=== PATIENT | female | born 1970 | race Caucasian/White ===

== ENCOUNTER 2016-06-20 14:38 | Emergency (ER) | payer OTHER ==
[~2016-06-20] VITALS: Ht 162.6 cm; Wt 70.0 kg
[~2016-06-20 14:38] MED LIST: POTA1CAP2 PO; PRLSR20 PO; RANI150T3 PO
[2016-06-20 14:44] VITALS: TEMP 37.2; Ht 162.6 cm; Wt 70.0 kg
[2016-06-20 15:00] VITALS: O2SAT 94
[2016-06-20] MEDS ORDERED: VITACAP26 PO (15:18)
[2016-06-20] MEDS ORDERED: CRAN1CAP15 PO (15:18)
[2016-06-20 15:27] LABS: BASO % 0.6 %; BASO ABS # 0.07 K/uL (0-0.2); COMPLETE YES; EOS % 1.7 %; HEMATOCRIT 42.2 % (37-47); IG% 0.3 %; LYMPH % 24.5 %; MEAN CELL VOLUME 91.1 fL (80-100); MEAN CORPUSCULAR HEMOGLOBIN 31.5 pg (25-34); MEAN CORPUSCULAR HGB CONC 34.6 g/dl (32-36); MEAN PLATELET VOLUME 10.5 fL (7.4-10.4); MONO % 7.4 %; NEUT % 65.5 %; PLATELET COUNT 309 K/uL (130-400); RED BLOOD COUNT 4.63 M/uL (4.2-5.4); WHITE BLOOD COUNT 12.22 K/uL (4.8-10.8)
--- NOTE | 2016-06-20 15:33 | EMERGENCY ROOM VISIT NOTE ---
History Report prepared by Zaira: Alex Harris Under the Supervision of: Dr. Abdon Patel D.O. First contact with patient: 14:48 Chief Complaint: ILLNESS Stated Complaint: BACK/ABD PAIN History of Present Illness The patient is a 45 year old female who presents to the Emergency Room with complaints of severe and persistent low back pain starting yesterday. She also reports bilateral lower extremity pain. The patient fell down face first at home yesterday due to weakness in bilateral lower extremities. She slid down [address]. She denies hitting her head but reports losing consciousness. The patient currently denies any headache, neck pain, abdominal pain, blood in urine, or any other complaints. She denies any recent surgeries. The patient states that she currently feels drunk but states that only had a small amount of alcohol this morning. She drinks alcohol occasionally. Source of History: patient Onset: yesterday Position: back (lower) Symptom Intensity: severe Timing: other (persistent) Associated Symptoms: + LOC, No abdominal pain, No headache, No neck pain Review of Systems See HPI for pertinent positives & negatives. A total of 10 systems reviewed and were otherwise negative. Past Medical & Surgical Medical Problems: (1) Anxiety (2) Bipolar disorder (3) Chest pain (4) Depression (5) Hiatal hernia (6) Hysterectomy (7) Migraine Surgical Problems: (1) H/O colonoscopy (2) H/O esophagogastroduodenoscopy (3) H/O exploratory laparotomy (4) H/O tubal ligation (5) H/O: hysterectomy Family History FHx: diabetes FHx: hypertension Social History Smoking Status: Current Every Day Smoker Alcohol Use: occasionally Drug Use: none Marital Status: Housing Status: lives with family Occupation Status: unemployed Current/Historical Medications Scheduled Cranberry-Vitamin C-Vitamin E (Cranberry), 2 CAP PO HS Escitalopram Oxalate (Escitalopram Oxalate), 20 MG PO HS Omeprazole (Prilosec), 20 MG PO BID Ranitidine HCl (Ranitidine HCl), 150 MG PO BID Vitamins C & E (Vitamin C), 1 CAP PO HS Scheduled PRN Dicyclomine Hcl (Dicyclomine Hcl), 10 MG PO QID PRN for Abdominal Pain Allergies Coded Allergies: Ciprofloxacin (Verified Adverse Reaction, Mild, GI SYMPTOMS, 04/04/16) Physical Exam Vital Signs Date Time Temp Pulse Resp B/P Pulse Ox O2 Delivery O2 Flow Rate FiO2 06/20/16 16:24 87 18 140/85 95 Room Air 06/20/16 15:06 86 06/20/16 15:00 94 Room Air 06/20/16 14:51 94 Room Air 06/20/16 14:44 37.2 84 16 127/85 94 Room Air Physical Exam GENERAL: Patient is awake, alert, mildly anxious appearing but also appears intoxicated. EYES: The conjunctivae are clear. The pupils are round and reactive. EARS, NOSE, MOUTH AND THROAT: The nose is without any evidence of any deformity. Mucous membranes are moist tongue is midline NECK: The neck is nontender and supple. RESPIRATORY: Normal respiratory effort is noted there is no evidence of wheezing rhonchi or rales CARDIOVASCULAR: Regular rate and rhythm noted there no murmurs rubs or gallops normal S1 normal S2 GASTROINTESTINAL: The abdomen is soft. Bowel sounds are present in all quadrants. Abdomen is nontender PELVIS: The Pelvis is stable. No tenderness to palpation is noted. BACK: Diffuse lumbar tenderness to palpation especially to lower lumbar spine, no step off. Patient is not restricted in movement. MUSCULOSKELETAL/EXTREMITIES: There is no evidence of gross deformity full range of motion is noted in the hips and shoulders SKIN: There is no obvious evidence of any rash. There are no petechiae, pallor or cyanosis noted. NEUROLOGIC: Patient is awake alert and oriented x3. Slurring her words. Medical Decision & Procedures ER Provider Diagnostic Interpretation: X ray results and stated below per my interpretation and radiology interpretation. CT results per my review and radiologist interpretation: CT SCAN OF THE CERVICAL SPINE CLINICAL HISTORY: Fall. COMPARISON STUDY: CT scan of the cervical spine dated 05/16/2014. Chest CT dated 09/13/2011. TECHNIQUE: CT scan of the cervical spine is performed from the skull base to the upper thoracic spine. Images are reviewed in the axial, sagittal, and coronal planes. IV contrast was not administered for this examination. CT DOSE: 432.92 mGycm FINDINGS: Skeletal structures: The skeletal structures are well mineralized. There is no evidence of fracture or subluxation involving the cervical spine. Vertebral body height and alignment are maintained. The odontoid process and lateral masses are intact. The atlantoaxial articulation is preserved. The spinous processes appear intact. Intervertebral discs: The disc spaces are well maintained. Central canal: Widely patent. Soft tissues: The prevertebral and paraspinous soft tissues are within normal limits. Calvarium: The visualized calvarium at the skull base appears intact. Brain parenchyma: Partially visualized brain parenchyma the skull base is within normal limits. Mastoids: The mastoid air cells are well pneumatized. Lung apices: A 5 mm left upper lobe pulmonary nodule is partially visualized. Upper lobe lung parenchyma is otherwise clear as visualized. IMPRESSION: 1. There is no evidence of fracture or subluxation involving the cervical spine. 2. There is a 5 mm left apical pulmonary nodule which is only partially imaged. This appears to have increased in size from the 09/13/[address] scan. A nonemergent follow-up chest CT is recommended for reassessment. Electronically signed by: Braeden Gill M.D. 06/20/2016 3:45 PM Dictated Date/Time: 06/20/2016 3:38 PM TWO VIEW CHEST CLINICAL HISTORY: Cough. Fall. FINDINGS: PA and lateral chest radiographs are compared to study dated 04/04/2016. Correlation is made with chest CT dated 09/13/2011. The PA view is degraded by apical lordotic positioning. The cardiomediastinal silhouette is unremarkable. Emphysema and chronic interstitial thickening are similar to previous. No airspace consolidation or pleural effusion is identified. There is no pneumothorax. The bony thorax appears intact. IMPRESSION: Emphysema with no acute cardiopulmonary abnormality. Electronically signed by: Braeden Gill M.D. 06/20/2016 4:02 PM Dictated Date/Time: 06/20/2016 4:[address] OF THE HEAD WITHOUT CONTRAST CLINICAL HISTORY: Fall. COMPARISON STUDY: Head CT October 21, 2015. CT DOSE: 638.56 mGycm TECHNIQUE: Helical axial images of the head were obtained without IV contrast. Automated exposure control was utilized for the study. FINDINGS: No acute intracranial hemorrhage, midline shift or mass effect is present. Ventricular system is normal. Basilar cisterns are patent. There are no extra-axial collections. Miranda-white differentiation is maintained. There is no calvarial fracture. Visualized portions of the sinuses and mastoid air cells are clear. IMPRESSION: 1. No acute intracranial findings. 2. No calvarial fracture. Electronically signed by: Guille Escobedo M.D. 06/20/2016 3:41 PM Dictated Date/Time: 06/20/2016 3:[address] OF THE LUMBAR SPINE WITHOUT CONTRAST CT DOSE: 584.48 mGycm CLINICAL HISTORY: Back pain following fall TECHNIQUE: Axial images of the lumbar spine were obtained without IV contrast. Sagittal and coronal reconstructions were viewed. COMPARISON STUDY: CT of the abdomen and pelvis October 21, 2015. FINDINGS: Alignment of the lumbar spine is anatomic. There is no acute fracture. Mild multilevel degenerative disc disease and facet arthrosis is present. Bilateral L5 pars defects with slight anterolisthesis of L5 on S1 are unchanged since exam of October 21, 2015. Paravertebral soft tissues are unremarkable. Central canal is suboptimally assessed by CT but no acute abnormality is identified. IMPRESSION: 1. No acute lumbar spine fracture or subluxation. 2. Mild multilevel degenerative disc disease and facet arthrosis. 3. Bilateral L5 pars defects with slight anterolisthesis of L5 on S1, unchanged since CT of October 21, 2015. Electronically signed by: Guille Escobedo M.D. 06/20/2016 3:46 PM Dictated Date/Time: 06/20/2016 3:41 PM PELVIS 1 OR 2 VIEW ROUTINE CLINICAL HISTORY: Fall. COMPARISON STUDY: CT of the abdomen and pelvis October 21, 2015. FINDINGS: The sacroiliac joints and symphysis pubis are intact. No acute fracture is identified within the pelvis or the hips. Hip joint spaces are preserved. Osteophytes along each acetabulum are noted. These are chronic. IMPRESSION: No acute fracture within the pelvis or hips. Electronically signed by: Guille Escobedo M.D. 06/20/2016 4:02 PM Dictated Date/Time: 06/20/2016 4:01 PM Laboratory Results 06/20/16 14:50 Red Blood Count 4.63, Mean Corpuscular Volume 91.1, Mean Corpuscular Hemoglobin 31.5, Mean Corpuscular Hemoglobin Concent 34.6, Mean Platelet Volume 10.5, Neutrophils (%) (Auto) 65.5, Lymphocytes (%) (Auto) 24.5, Monocytes (%) (Auto) 7.4, Eosinophils (%) (Auto) 1.7, Basophils (%) (Auto) 0.6, Neutrophils # (Auto) 7.99, Lymphocytes # (Auto) 3.00, Monocytes # (Auto) 0.91, Eosinophils # (Auto) 0.21, Basophils # (Auto) 0.07 06/20/16 14:50 Test 06/20/16 14:50 06/20/16 15:12 06/20/16 15:15 06/20/16 16:22 White Blood Count 12.22 K/uL (4.8-10.8) Red Blood Count 4.63 M/uL (4.2-5.4) Hemoglobin 14.6 g/dL (12.0-16.0) Hematocrit 42.2 % (37-47) Mean Corpuscular Volume 91.1 fL (80-100) Mean Corpuscular Hemoglobin 31.5 pg (25-34) Mean Corpuscular Hemoglobin Concent 34.6 g/dl (32-36) Platelet Count 309 K/uL (130-400) Mean Platelet Volume 10.5 fL (7.4-10.4) Neutrophils (%) (Auto) 65.5 % Lymphocytes (%) (Auto) 24.5 % Monocytes (%) (Auto) 7.4 % Eosinophils (%) (Auto) 1.7 % Basophils (%) (Auto) 0.6 % Neutrophils # (Auto) 7.99 K/uL (1.4-6.5) Lymphocytes # (Auto) 3.00 K/uL (1.2-3.4) Monocytes # (Auto) 0.91 K/uL (0.11-0.59) Eosinophils # (Auto) 0.21 K/uL (0-0.5) Basophils # (Auto) 0.07 K/uL (0-0.2) RDW Standard Deviation 46.8 fL (36.4-46.3) RDW Coefficient of Variation 14.0 % (11.5-14.5) Immature Granulocyte % (Auto) 0.3 % Immature Granulocyte # (Auto) 0.04 K/uL (0.00-0.02) Prothrombin Time 11.6 SECONDS (9.0-12.0) Prothromb Time International Ratio 1.1 (0.9-1.1) Activated Partial Thromboplast Time 26.6 SECONDS (21.0-31.0) Partial Thromboplastin Ratio 1.0 Anion Gap 11.0 mmol/L (3-11) Est Creatinine Clear Calc Drug Dose 74.9 ml/min Estimated GFR () 87.8 Estimated GFR (Non- 75.7 BUN/Creatinine Ratio 11.8 (10-20) Calcium Level 8.3 mg/dl (8.5-10.1) Total Bilirubin 0.2 mg/dl (0.2-1) Direct Bilirubin < 0.1 mg/dl (0-0.2) Aspartate Amino Transf (AST/SGOT) 29 U/L (15-37) Alanine Aminotransferase (ALT/SGPT) 30 U/L (12-78) Alkaline Phosphatase 95 U/L (45-117) Total Creatine Kinase 80 U/L (26-192) Troponin I < 0.015 ng/ml (0-0.045) Total Protein 8.2 gm/dl (6.4-8.2) Albumin 4.2 gm/dl (3.4-5.0) Lipase 140 U/L (73-393) Salicylates Level 5.0 mg/dl (2.8-20) Acetaminophen Level < 2 ug/ml (10-30) Bedside Glucose 97 mg/dl (70-90) Ethyl Alcohol mg/dL 232.0 mg/dl (0-3) Urine Color YELLOW Urine Appearance CLOUDY (CLEAR) Urine pH 5.5 (4.5-7.5) Urine Specific [place] 1.019 (1.000-1.030) Urine Protein TRACE (NEG) Urine Glucose (UA) NEG (NEG) Urine Ketones NEG (NEG) Urine Occult Blood 2+ (NEG) Urine Nitrite NEG (NEG) Urine Bilirubin NEG (NEG) Urine Urobilinogen NEG (NEG) Urine Leukocyte Esterase MODERATE (NEG) Urine WBC (Auto) >30 /hpf (0-5) Urine RBC (Auto) 0-4 /hpf (0-4) Urine Hyaline Casts (Auto) 0 /lpf (0-5) Urine Epithelial Cells (Auto) >30 /lpf (0-5) Urine Bacteria (Auto) 2+ (NEG) Urine Pathogenic Casts See comments /lpf (0) Urine Yeast (Auto) (NONE PRSENT) Urine Opiates Screen NEG (NEG) Urine Methadone, Qualitative NEG (NEG) Urine Barbiturates NEG (NEG) Urine Phencyclidine (PCP) Level NEG (NEG) Ur Amphetamine/Methamphetamine NEG (NEG) MDMA (Ecstasy) Screen NEG (NEG) Urine Benzodiazepines Screen NEG (NEG) Urine Cocaine Metabolite NEG (NEG) Urine Marijuana (THC) NEG (NEG) Laboratory results per my review. ECG Indication: back/shoulder pain, other (fall) Rate (beats per minute): 81 Rhythm: normal sinus Findings: no ectopy, other (No acute ST segment abnormalities) Comparison ECG Date: November 19, 2015 Change: no significant change ED Course 1448: The patient was evaluated in room A03. A complete history and physical examination were performed. 1710: The patient left the hospital before discharge instructions were discussed. Medical Decision Prior records/ancillary studies reviewed. Triage Nursing notes reviewed. Differential diagnosis: Etiologies such as fracture, dislocation, intra-abdominal, pneumothorax, intrathoracic , intracranial, neurologic, as well as other traumatic pathologies were entertained. Nursing notes reviewed. The patient is a 45-year-old female who presented to the emergency department for an evaluation back pain. The patient states that she fell down some stairs at her home yesterday. She has pain which is mostly in the lower lumbar spine. She states that she has pain and numbness in her legs. Her exam was normal. Her reflexes were normal. She was able to ambulate without difficulty. The patient had an elevated alcohol level in the emergency department. The patient was treated with IV fluids in the emergency department. I discussed the patient's laboratory and radiographic studies with her. At this time there is no bony abnormality noted on CT scan. She was encouraged to rest and avoid any strenuous activity. She was encouraged to avoid any strong pain medication for next 24 hours and avoid any further alcoholic beverages for next 24 hours. She was also encouraged to avoid operating any heavy machinery including driving a vehicle for next 24 hours. She was also encouraged to follow-up with her primary care physician as soon as possible but return to the emergency department immediately if symptoms change worsen or if the need arises. Impression Primary Impression: Fall Additional Impressions: Lumbar contusion Alcohol intoxication Scribe Attestation The scribe's documentation has been prepared under my direction and personally reviewed by me in its entirety. I confirm that the note above accurately reflects all work, treatment, procedures, and medical decision making performed by me. Departure Information Dispostion Home / Self-Care Referrals Tara Byrne PA-C (PCP) Forms HOME CARE DOCUMENTATION FORM, IMPORTANT VISIT INFORMATION, WORK / SCHOOL INSTRUCTIONS Patient Instructions Alcohol Intoxication - [facility], ED Sprain Strain Lumbar, My [facility] Additional Instructions Call your family to schedule a follow-up appointment. Continue using Motrin and Tylenol as directed for pain. Avoid any strenuous activity. Do not operate any heavy machinery including driving a vehicle for the next 24 hours because her alcohol level was very elevated. Problem Qualifiers
[2016-06-20 15:40] LABS: INR 1.1 (0.9-1.1); PROTHROMBIN TIME (PATIENT) 11.6 SECONDS (9.0-12.0)
--- NOTE | 2016-06-20 15:42 | DIAGNOSTIC IMAGING REPORT ---
CT OF THE HEAD WITHOUT CONTRAST CLINICAL HISTORY: Fall. COMPARISON STUDY: Head CT October 21, 2015. CT DOSE: 638.56 mGycm TECHNIQUE: Helical axial images of the head were obtained without IV contrast. Automated exposure control was utilized for the study. FINDINGS: No acute intracranial hemorrhage, midline shift or mass effect is present. Ventricular system is normal. Basilar cisterns are patent. There are no extra-axial collections. Miranda-white differentiation is maintained. There is no calvarial fracture. Visualized portions of the sinuses and mastoid air cells are clear. IMPRESSION: 1. No acute intracranial findings. 2. No calvarial fracture. Electronically signed by: Guille Escobedo M.D. 06/20/2016 3:41 PM Dictated Date/Time: 06/20/2016 3:34 PM
[2016-06-20 15:47] LABS: ALT/SGPT 30 U/L (12-78); BLOOD UREA NITROGEN 11 mg/dl (7-18); BUN/CREATININE RATIO 11.8 (10-20); CALCIUM 8.3 mg/dl (8.5-10.1); CARBON DIOXIDE 23 mmol/L (21-32); CHLORIDE 105 mmol/L (98-107); CREATININE 0.92 mg/dl (0.60-1.20); GLUCOSE 93 mg/dl (70-99); POTASSIUM 3.9 mmol/L (3.5-5.1); SODIUM 139 mmol/L (136-145)
--- NOTE | 2016-06-20 15:47 | DIAGNOSTIC IMAGING REPORT ---
CT SCAN OF THE CERVICAL SPINE CLINICAL HISTORY: Fall. COMPARISON STUDY: CT scan of the cervical spine dated 05/16/2014. Chest CT dated 09/13/2011. TECHNIQUE: CT scan of the cervical spine is performed from the skull base to the upper thoracic spine. Images are reviewed in the axial, sagittal, and coronal planes. IV contrast was not administered for this examination. CT DOSE: 432.92 mGycm FINDINGS: Skeletal structures: The skeletal structures are well mineralized. There is no evidence of fracture or subluxation involving the cervical spine. Vertebral body height and alignment are maintained. The odontoid process and lateral masses are intact. The atlantoaxial articulation is preserved. The spinous processes appear intact. Intervertebral discs: The disc spaces are well maintained. Central canal: Widely patent. Soft tissues: The prevertebral and paraspinous soft tissues are within normal limits. Calvarium: The visualized calvarium at the skull base appears intact. Brain parenchyma: Partially visualized brain parenchyma the skull base is within normal limits. Mastoids: The mastoid air cells are well pneumatized. Lung apices: A 5 mm left upper lobe pulmonary nodule is partially visualized. Upper lobe lung parenchyma is otherwise clear as visualized. IMPRESSION: 1. There is no evidence of fracture or subluxation involving the cervical spine. 2. There is a 5 mm left apical pulmonary nodule which is only partially imaged. This appears to have increased in size from the 09/13/[address] scan. A nonemergent follow-up chest CT is recommended for reassessment. Electronically signed by: Braeden Gill M.D. 06/20/2016 3:45 PM Dictated Date/Time: 06/20/2016 3:38 PM
--- NOTE | 2016-06-20 15:48 | DIAGNOSTIC IMAGING REPORT ---
CT OF THE LUMBAR SPINE WITHOUT CONTRAST CT DOSE: 584.48 mGycm CLINICAL HISTORY: Back pain following fall TECHNIQUE: Axial images of the lumbar spine were obtained without IV contrast. Sagittal and coronal reconstructions were viewed. COMPARISON STUDY: CT of the abdomen and pelvis October 21, 2015. FINDINGS: Alignment of the lumbar spine is anatomic. There is no acute fracture. Mild multilevel degenerative disc disease and facet arthrosis is present. Bilateral L5 pars defects with slight anterolisthesis of L5 on S1 are unchanged since exam of October 21, 2015. Paravertebral soft tissues are unremarkable. Central canal is suboptimally assessed by CT but no acute abnormality is identified. IMPRESSION: 1. No acute lumbar spine fracture or subluxation. 2. Mild multilevel degenerative disc disease and facet arthrosis. 3. Bilateral L5 pars defects with slight anterolisthesis of L5 on S1, unchanged since CT of October 21, 2015. Electronically signed by: Guille Escobedo M.D. 06/20/2016 3:46 PM Dictated Date/Time: 06/20/2016 3:41 PM
[2016-06-20 15:51] LABS: ALKALINE PHOSPHATASE 95 U/L (45-117); AST/SGOT 29 U/L (15-37)
[2016-06-20 15:53] LABS: ACETAMINOPHEN < 2 ug/ml (10-30)
--- NOTE | 2016-06-20 16:03 | DIAGNOSTIC IMAGING REPORT ---
PELVIS 1 OR 2 VIEW ROUTINE CLINICAL HISTORY: Fall. COMPARISON STUDY: CT of the abdomen and pelvis October 21, 2015. FINDINGS: The sacroiliac joints and symphysis pubis are intact. No acute fracture is identified within the pelvis or the hips. Hip joint spaces are preserved. Osteophytes along each acetabulum are noted. These are chronic. IMPRESSION: No acute fracture within the pelvis or hips. Electronically signed by: Guille Escobedo M.D. 06/20/2016 4:02 PM Dictated Date/Time: 06/20/2016 4:01 PM
--- NOTE | 2016-06-20 16:03 | DIAGNOSTIC IMAGING REPORT ---
TWO VIEW CHEST CLINICAL HISTORY: Cough. Fall. FINDINGS: PA and lateral chest radiographs are compared to study dated 04/04/2016. Correlation is made with chest CT dated 09/13/2011. The PA view is degraded by apical lordotic positioning. The cardiomediastinal silhouette is unremarkable. Emphysema and chronic interstitial thickening are similar to previous. No airspace consolidation or pleural effusion is identified. There is no pneumothorax. The bony thorax appears intact. IMPRESSION: Emphysema with no acute cardiopulmonary abnormality. Electronically signed by: Braeden Gill M.D. 06/20/2016 4:02 PM Dictated Date/Time: 06/20/2016 4:00 PM
[2016-06-20 16:24] VITALS: BP 140/85; PULSE 87; O2SAT 95
[2016-06-20 16:47] LABS: URINE APPEARANCE CLOUDY (CLEAR); URINE BILIRUBIN NEG (NEG); URINE COLOR YELLOW; URINE EPITHELIAL CELL AUTO >30 /lpf (0-5); URINE NITRITE NEG (NEG); URINE PH 5.5 (4.5-7.5); URINE SPECIFIC GRAVITY 1.019 (1.000-1.030); UROBILINOGEN NEG (NEG)
[2016-06-20] MEDS ORDERED: DICY10CA12 PO (16:47)
[2016-06-20 17:01] LABS: BENZODIAZEPINE, URINE NEG (NEG); COCAINE,URINE NEG (NEG); MANUAL MICROSCOPIC REQUIRED? NO; PHENCYCLIDINE, URINE NEG (NEG); REVIEW REQ? YES
== END 2016-06-20 17:00 | disposition left against medical advice (07) ==
LOC: EDBD 14:38 → C.EDA 14:39
DX: S30.0XXA Contusion of lower back and pelvis, initial encounter (principal); F10.129 Alcohol abuse with intoxication, unspecified; W19.XXXA Unspecified fall, initial encounter; F41.9 Anxiety disorder, unspecified; F31.9 Bipolar disorder, unspecified; Z90.710 Acquired absence of both cervix and uterus; Z98.51 Tubal ligation status; F17.200 Nicotine dependence, unspecified, uncomplicated

== ENCOUNTER 2016-12-12 12:57 | Emergency (ER) | payer OTHER ==
[~2016-12-12] VITALS: Ht 162.6 cm; Wt 69.1 kg
[~2016-12-12 12:57] MED LIST changes: +CRAN1CAP15 PO; +DICY10CA12 PO; -POTA1CAP2 PO; -PRLSR20 PO; -RANI150T3 PO; +VITACAP26 PO
[2016-12-12 13:01] VITALS: TEMP 36.7; Ht 162.6 cm; Wt 69.1 kg
[2016-12-12] MEDS ORDERED: SODIUM CHLORIDE 0.9% 1000ML 1,000 ML IV STA (13:25)
[2016-12-12] MEDS ORDERED: SODIUM CHLORIDE 0.9% 1000ML 2,000 ML IV STA (13:25)
[2016-12-12 13:52] LABS: BASO % 0.4 %; BASO ABS # 0.05 K/uL (0-0.2); COMPLETE YES; EOS % 0.5 %; HEMATOCRIT 41.4 % (37-47); IG% 0.2 %; LYMPH % 16.8 %; LYMPH ABS # 2.09 K/uL (1.2-3.4); MEAN CORPUSCULAR HEMOGLOBIN 32.8 pg (25-34); MEAN CORPUSCULAR HGB CONC 36.5 g/dl (32-36); MEAN PLATELET VOLUME 10.4 fL (7.4-10.4); NEUT % 73.1 %; PLATELET COUNT 281 K/uL (130-400); WHITE BLOOD COUNT 12.46 K/uL (4.8-10.8)
--- NOTE | 2016-12-12 14:03 | DIAGNOSTIC IMAGING REPORT ---
SINGLE VIEW CHEST CLINICAL HISTORY: Dizziness. FINDINGS: An AP, portable, upright chest radiograph is compared to study dated 06/20/2016. The examination is degraded by portable technique and patient rotation. The cardiomediastinal silhouette is unremarkable. The lungs and pleural spaces are clear. No pneumothorax is seen. The bony thorax is grossly intact. IMPRESSION: No active disease in the chest. Electronically signed by: Braeden Gill M.D. 12/12/2016 2:01 PM Dictated Date/Time: 12/12/2016 2:01 PM
[2016-12-12 14:13] LABS: URINE APPEARANCE CLOUDY (CLEAR); URINE BILIRUBIN NEG (NEG); URINE COLOR DK YELLOW; URINE EPITHELIAL CELL AUTO >30 /lpf (0-5); URINE NITRITE NEG (NEG); URINE SPECIFIC GRAVITY 1.014 (1.000-1.030); UROBILINOGEN NEG (NEG)
[2016-12-12 14:14] LABS: ALT/SGPT 24 U/L (12-78); BLOOD UREA NITROGEN 8 mg/dl (7-18); BUN/CREATININE RATIO 4.9 (10-20); CALCIUM 9.7 mg/dl (8.5-10.1); CARBON DIOXIDE 25 mmol/L (21-32); CHLORIDE 96 mmol/L (98-107); GLUCOSE 102 mg/dl (70-99); MAGNESIUM 1.7 mg/dl (1.8-2.4); SODIUM 129 mmol/L (136-145)
[2016-12-12 14:16] LABS: MANUAL MICROSCOPIC REQUIRED? NO; REVIEW REQ? YES
[2016-12-12 14:25] LABS: ALB/GLOB RATIO 1.4 (0.9-2); ALKALINE PHOSPHATASE 102 U/L (45-117); AST/SGOT 38 U/L (15-37); CKMB/CK RATIO 1.9 (0-3.0)
[2016-12-12] MEDS ORDERED: MAGNESIUM SULFATE 1GM / D5W 1 GM BAG IV STA (14:33)
[2016-12-12] MEDS ORDERED: KETOROLAC TROMETHAMINE 30 MG/ML VIAL IV STA (14:39)
--- NOTE | 2016-12-12 14:59 | EMERGENCY ROOM VISIT NOTE ---
ED Visit Note First contact with patient: 13:07 46-year-old female with dizziness, aches and crampiness was fully evaluated by Stacy Rodriguez PA-C. Please see her note. I also independently evaluated the patient. The patient appears to be significantly dehydrated. She was given 2 L of IV fluid and was able to drink fluids prior to departure. Multiple labs were evaluated.
[2016-12-12 15:27] VITALS: O2SAT 98
--- NOTE | 2016-12-12 17:23 | EMERGENCY ROOM VISIT NOTE ---
History First contact with patient: 13:07 Chief Complaint: DIZZY Stated Complaint: DIZZY, CRAMPING History of Present Illness Patient is a 46-year-old white female who presents to the emergency department for evaluation of leg cramping, tingling in her hands and fingers, fatigue, dizziness and abdominal cramping that started yesterday. Patient works in [employer]. 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 She says her symptoms started yesterday toward the end of her work today, when she noted some fatigue, dizziness and cramping in her legs. She drank a lot of water yesterday, and states she took Tylenol and went to bed. 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 She was dressed and her full fire suit, but did not participate other than holding a Thermal injury imaging camera. She states that she was sweating after being in the [place] for just a few minutes. She went to work and was using a weed whacker, but after roughly 30 minutes she had to stop due to her symptoms. She again reported feeling dizzy, lightheaded and slightly nauseous, and experiencing muscle cramping and right-sided abdominal cramping. She was slightly short of breath at that time. She denies any chest pain or palpitations. She has a mild headache. There has been no vomiting. She has not urinated today. She has not taken any medications for her symptoms today. Review of Systems Review of systems as per HPI. All other systems reviewed were negative. 10 systems reviewed. Past Medical/Surgical History Medical Problems: (1) Alcohol intoxication (2) Anxiety (3) Bipolar disorder (4) Chest pain (5) Depression (6) Epigastric abdominal pain (7) Fall (8) Gastro-Esophageal Reflux Disease Without Esophagitis (9) Hiatal hernia (10) Hypokalemia (11) Lumbar contusion (12) Migraine (13) Nausea, vomiting and diarrhea (14) Precordial chest pain (15) Right flank pain (16) RUQ abdominal pain Surgical Problems: (1) H/O colonoscopy (2) H/O esophagogastroduodenoscopy (3) H/O exploratory laparotomy (4) H/O tubal ligation (5) H/O: hysterectomy (6) Hysterectomy Electronic medical records are reviewed and summarized as above/below. See Problem List. Family History FHx: diabetes FHx: hypertension Social History Smoking Status: Current Every Day Smoker Alcohol Use: occasionally Drug Use: none Housing Status: lives with family Occupation Status: employed Current/Historical Medications Scheduled Escitalopram Oxalate (Escitalopram Oxalate), 20 MG PO HS Omeprazole (Prilosec), 20 MG PO BID Ranitidine HCl (Ranitidine HCl), 150 MG PO BID Scheduled PRN Dicyclomine Hcl (Dicyclomine Hcl), 10 MG PO QID PRN for Abdominal Pain Physical Exam Vital Signs Date Time Temp Pulse Resp B/P (MAP) Pulse Ox O2 Delivery O2 Flow Rate FiO2 12/12/16 17:49 117/63 12/12/16 17:27 95 28 12/12/16 16:57 87 31 12/12/16 16:38 135/80 12/12/16 16:27 79 19 12/12/16 15:57 80 21 12/12/16 15:27 77 21 98 12/12/16 15:08 78 20 128/81 97 Room Air 12/12/16 15:06 128/81 12/12/16 14:57 88 20 12/12/16 14:27 86 18 12/12/16 14:04 87 18 120/83 97 Room Air 12/12/16 14:03 120/83 12/12/16 14:02 117/79 12/12/16 14:01 79 110/73 82 117/79 87 120/83 12/12/16 13:57 80 28 12/12/16 13:37 94 12/12/16 13:01 36.7 98 18 116/81 97 Room Air Physical Exam CONSTITUTIONAL: Patient is a well-appearing 46-year-old white female who is awake and alert and in no acute distress. EYES: Pupils equal, round, reactive to light and accommodation. EOMs intact without nystagmus. Sclera are anicteric. ENT: Tympanic membranes intact, with normal landmarks. External canals are clear. Oral and nasopharynx are clear. Mucous membranes are moist, no lesions , tongue and gums appear normal. NECK: No bruits auscultated. Supple without lymphadenopathy. No thyromegaly. No meningeal signs. Full active range of motion without discomfort. CARDIOVASCULAR: Regular rate and rhythm, with normal S1 and S2, no murmur or gallop or rub is heard. No carotid bruits auscultated. No JVD. Peripheral pulses easy to palpable. RESPIRATORY: Breath sounds equal and clear to auscultation without wheezes, rales, or rhonchi heard. Full and equal chest expansion without accessory muscle use or retractions. GI: Bowel sounds are present. Abdomen is soft, nontender, nondistended. No organomegaly. No pulsatile masses. No guarding or rebound. MUSCULOSKELETAL: Full range of motion of extremities x 4 with good strength. No cyanosis, edema, joint tenderness or swelling. No deformity. INTEGUMENTARY: No lesions or rash, normal skin turgor. NEUROLOGICAL: Alert, oriented, and cooperative. Cranial nerves, sensation and strength grossly intact. Normal gait. Tandem walk intact. Negative Romberg and pronator drift. Finger to nose and finger to finger testing are within normal limits. Upper and lower extremity DTRs are equal and symmetrical bilaterally. Mini-Mental status exam is unremarkable. LYMPH: No lymphadenopathy. Medical Decision & Procedures ER Provider Diagnostic Interpretation: SINGLE VIEW CHEST CLINICAL HISTORY: Dizziness. FINDINGS: An AP, portable, upright chest radiograph is compared to study dated 06/20/2016. The examination is degraded by portable technique and patient rotation. The cardiomediastinal silhouette is unremarkable. The lungs and pleural spaces are clear. No pneumothorax is seen. The bony thorax is grossly intact. IMPRESSION: No active disease in the chest. Laboratory Results 12/12/16 13:35 Red Blood Count 4.60, Mean Corpuscular Volume 90.0, Mean Corpuscular Hemoglobin 32.8, Mean Corpuscular Hemoglobin Concent 36.5, Mean Platelet Volume 10.4, Neutrophils (%) (Auto) 73.1, Lymphocytes (%) (Auto) 16.8, Monocytes (%) (Auto) 9.0, Eosinophils (%) (Auto) 0.5, Basophils (%) (Auto) 0.4, Neutrophils # (Auto) 9.11, Lymphocytes # (Auto) 2.09, Monocytes # (Auto) 1.12, Eosinophils # (Auto) 0.06, Basophils # (Auto) 0.05 12/12/16 13:35 Test 12/12/16 13:35 12/12/16 13:45 12/12/16 13:49 12/12/16 15:50 White Blood Count 12.46 K/uL (4.8-10.8) Red Blood Count 4.60 M/uL (4.2-5.4) Hemoglobin 15.1 g/dL (12.0-16.0) Hematocrit 41.4 % (37-47) Mean Corpuscular Volume 90.0 fL (80-100) Mean Corpuscular Hemoglobin 32.8 pg (25-34) Mean Corpuscular Hemoglobin Concent 36.5 g/dl (32-36) Platelet Count 281 K/uL (130-400) Mean Platelet Volume 10.4 fL (7.4-10.4) Neutrophils (%) (Auto) 73.1 % Lymphocytes (%) (Auto) 16.8 % Monocytes (%) (Auto) 9.0 % Eosinophils (%) (Auto) 0.5 % Basophils (%) (Auto) 0.4 % Neutrophils # (Auto) 9.11 K/uL (1.4-6.5) Lymphocytes # (Auto) 2.09 K/uL (1.2-3.4) Monocytes # (Auto) 1.12 K/uL (0.11-0.59) Eosinophils # (Auto) 0.06 K/uL (0-0.5) Basophils # (Auto) 0.05 K/uL (0-0.2) RDW Standard Deviation 40.7 fL (36.4-46.3) RDW Coefficient of Variation 12.4 % (11.5-14.5) Immature Granulocyte % (Auto) 0.2 % Immature Granulocyte # (Auto) 0.03 K/uL (0.00-0.02) Anion Gap 8.0 mmol/L (3-11) Est Creatinine Clear Calc Drug Dose 39.9 ml/min Estimated GFR () 41.5 Estimated GFR (Non- 35.8 BUN/Creatinine Ratio 4.9 (10-20) Calcium Level 9.7 mg/dl (8.5-10.1) Magnesium Level 1.7 mg/dl (1.8-2.4) Total Bilirubin 1.1 mg/dl (0.2-1) Aspartate Amino Transf (AST/SGOT) 38 U/L (15-37) Alanine Aminotransferase (ALT/SGPT) 24 U/L (12-78) Alkaline Phosphatase 102 U/L (45-117) Total Creatine Kinase 400 U/L (26-192) Creatine Kinase MB 7.6 ng/ml (0.5-3.6) Creatine Kinase MB Ratio 1.9 (0-3.0) Troponin I < 0.015 ng/ml (0-0.045) Total Protein 8.8 gm/dl (6.4-8.2) Albumin 5.1 gm/dl (3.4-5.0) Globulin 3.7 gm/dl (2.5-4.0) Albumin/Globulin Ratio 1.4 (0.9-2) Thyroid Stimulating Hormone (TSH) 1.710 uIu/ml (0.300-4.500) Urine Color DK YELLOW Urine Appearance CLOUDY (CLEAR) Urine pH 5.0 (4.5-7.5) Urine Specific [place] 1.014 (1.000-1.030) Urine Protein TRACE (NEG) Urine Glucose (UA) NEG (NEG) Urine Ketones NEG (NEG) Urine Occult Blood 1+ (NEG) Urine Nitrite NEG (NEG) Urine Bilirubin NEG (NEG) Urine Urobilinogen NEG (NEG) Urine Leukocyte Esterase TRACE (NEG) Urine WBC (Auto) 1-5 /hpf (0-5) Urine RBC (Auto) 0-4 /hpf (0-4) Urine Hyaline Casts (Auto) 5-10 /lpf (0-5) Urine Epithelial Cells (Auto) >30 /lpf (0-5) Urine Bacteria (Auto) 1+ (NEG) Urine Renal Epithelial Cells 0-5 /lpf (0-5) Bedside D-Dimer 315 ng/mlFEU (0-450) Bedside Glucose 106 mg/dl (70-90) Medications Administered Medications (Trade) Dose Ordered Sig/Randi Route Start Time Stop Time Status Last Admin Dose Admin Sodium Chloride 2,000 ml @ 999 mls/hr Q2H1M STAT IV 12/12/16 13:25 12/12/16 15:25 DC 12/12/16 13:43 999 MLS/HR Sodium Chloride 1,000 ml @ 250 mls/hr Q4H STAT IV 12/12/16 13:25 12/12/16 17:24 DC 12/12/16 15:07 250 MLS/HR Magnesium Sulfate (Magnesium Sulfate) 2 gm NOW STAT IV 12/12/16 14:33 12/12/16 14:34 DC 12/12/16 15:07 2 GM Ketorolac Tromethamine (Toradol Inj) 30 mg NOW STAT IV 12/12/16 14:39 12/12/16 14:40 DC 12/12/16 15:06 30 MG ECG Indication: weakness, other (dizziness) Rate (beats per minute): 89 Rhythm: normal sinus Findings: no acute ischemic change, no ectopy Change: no significant change ED Course The patient was seen and evaluated as above. Her old records were reviewed. IV lock was initiated and she was hydrated aggressively with normal saline solution. She was not orthostatic with vital signs, but was symptomatic with position changes. She was given a 2 L bolus of normal saline solution, then 250 mL per hour. EKG was performed and was as noted above. She was placed on a mold sander and observed through her emergency department stay. CBC with differential, CMP, magnesium, TSH, CK, CK-MB, troponin, TSH and urinalysis were performed. Laboratory studies noted a white count of 12,400, leukocytosis is nonspecific, and on review of her prior records she does tend to run an elevated white count. H&H is normal. Platelets are normal. [id number] d-dimer was well within normal limits, therefore further workup for PE was not pursued. Patient was noted to be hyponatremic with a sodium of 129, potassium 4.0, chloride 96, carbon dioxide 25, BUN 8 and creatinine 1.7, which is up from her baseline which is usually within the normal range. Mag was slightly low at 1.7. She has very slight elevation of her total CK at 400. Troponin is normal. TSH is indicative of a euthyroid state. Urinalysis notes 1+ occult blood, trace leukoesterase, 1+ bacteria with greater than 30 epithelial cells. This is felt indicate contamination, and as the patient is not experiencing any urinary symptoms, further testing was not performed. Chest x-ray was unremarkable. This patient was reassessed frequently. She to continue to complain of some body and muscle aches and was given Toradol 30 mg IV. She was mildly tachycardic upon initial presentation, this improved with the IV hydration. Laboratory and diagnostic imaging studies were reviewed with attending physician who also independently evaluated the patient. She was reassessed and reported that she was still feeling a little bit dizzy and was seeing some dark spots throughout her visual field. BSG was checked and was 106. She was ordered a meal tray. She had been given oral fluids throughout the entire emergency department course. She was able to ambulate to the bathroom with minimal difficulty. The patient has findings concerning for dehydration, with a slight elevation in her creatinine, hyponatremia, and elevated total CK. She does not appear to be in rhabdomyolysis. Differential diagnoses arrhythmia, acute coronary syndrome, orthostasis, dehydration, electrolyte abnormalities, anemia, hypoglycemia, metabolic or endocrinologic abnormality, CVA/TIA, among others. The patient was hydrated aggressively in the emergency department and after eating didn't feel that her symptoms had improved. She did not wish to stay in the hospital, which I think is reasonable if she rests over the next 2 days and increases her clear fluid intake. She was given a note to be out of work for 2 days for recovery. She was encouraged to recheck with her PCP in 2 days for repeat BMP, certainly at any point she can return to the emergency department for worsening symptoms. She expressed understanding of this and was agreeable. She was discharged to home in good condition with a male friend driving. Medical Decision See emergency Department course Medication Reconcilliation Current Medication List: was personally reviewed by me Blood Pressure Screening Patient's blood pressure: Normal blood pressure Blood pressure disposition: Did not require urgent referral Impression Primary Impression: Dehydration Additional Impression: Hyponatremia Departure Information Referrals Tara Byrne PA-C (PCP) Patient Instructions My [facility] Additional Instructions Ibuprofen(Motrin, Advil) may be used for fever or pain. Use 600mg every six hours as needed. Take with food. Avoid using more than 2400mg in a 24 hour period. Do not use 2400mg per day for more than three consecutive days without physician direction. Prolonged inappropriate use can lead to stomach upset or ulcers. (AND/OR) Acetaminophen(Tylenol) may be used for fever or pain. Use 1000mg every six hours as needed. Avoid using more than 4000mg in a 24 hour period. Drink plenty of fluids as tolerated. Slow sips of water or sports drinks are recommended instead of large amounts all at once. Avoid excessive caffeinated beverages, and no alcohol. Rest today in a quiet, peaceful, dark environment and get a full 8-10 hrs of sleep tonight. Continue current medications. Once your stomach is settled start with a clear liquid diet (jello, soup broth, etc.) and then advance as tolerated. You should avoid full, heavy meals for about 24 hrs from the time your symptoms resolved. Return to the ER for passing out, worsening dizziness, severe headaches, vision problems, neck stiffness/pain, fevers, vomiting, worsening of your condition, or as needed. Follow up with your primary physician in 2-3 days for a recheck of your current condition. Problem Qualifiers
[2016-12-12 17:27] VITALS: PULSE 95
[2016-12-12 17:49] VITALS: BP 117/63
== END 2016-12-12 17:55 | disposition home or self-care (01) ==
LOC: C.EDB 12:58 → C.EDA 17:55
DX: E86.0 Dehydration (principal); E87.1 Hypo-osmolality and hyponatremia; R42 Dizziness and giddiness; R25.2 Cramp and spasm; R20.2 Paresthesia of skin; R53.83 Other fatigue; K21.9 Gastro-esophageal reflux disease without esophagitis; F31.9 Bipolar disorder, unspecified; Z79.899 Other long term (current) drug therapy; Z87.898 Personal history of other specified conditions; Z82.49 Family history of ischemic heart disease and other diseases of the circulatory system; Z83.3 Family history of diabetes mellitus; F17.200 Nicotine dependence, unspecified, uncomplicated

== ENCOUNTER 2016-12-15 22:14 | Emergency (ER) | payer OTHER ==
[~2016-12-15] VITALS: Ht 160 cm; Wt 72.6 kg
[~2016-12-15 22:14] MED LIST changes: -CRAN1CAP15 PO; -VITACAP26 PO
[2016-12-15 22:21] VITALS: TEMP 36.7; Ht 160 cm; Wt 72.6 kg
[2016-12-15 22:26] VITALS: O2SAT 95
[2016-12-15] MEDS ORDERED: MoRPHine SULFATE 10 MG/ML CARP/VIAL IV STA (22:53)
--- NOTE | 2016-12-15 22:53 | EMERGENCY ROOM VISIT NOTE ---
History Report prepared by Zaira: Jack Santizo Under the Supervision of: Dr. Leonel Calix M.D. First contact with patient: 22:47 Chief Complaint: HEADACHE Stated Complaint: HEADACHE History of Present Illness The patient is a 46 year old female who presents to the Emergency Room with complaints of a severe headaches that began shortly prior to arrival. The headache is concentrated from her "temples forward" and is the worst of her life. The patient states that she was laying down watching TV when she began to feel nauseous. She went to bed to try to sleep. The patient's states that he left her in bed for a few minutes before returning. When he came back the patient was unresponsive in bed. He claims that he tried to awake the patient for 2-3 minutes before he phoned for Emergency Medical Services. She is currently complaining of a "throbbing" headache and global numbness. 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 Review of Systems All systems have been listed, reviewed, and are negative other than those previously mentioned. Please see Additional Medical History Sheet. Past Medical & Surgical Medical Problems: (1) Alcohol intoxication (2) Anxiety (3) Bipolar disorder (4) Chest pain (5) Depression (6) Epigastric abdominal pain (7) Fall (8) Gastro-Esophageal Reflux Disease Without Esophagitis (9) Hiatal hernia (10) Hypokalemia (11) Lumbar contusion (12) Migraine (13) Nausea, vomiting and diarrhea (14) Precordial chest pain (15) Right flank pain (16) RUQ abdominal pain Surgical Problems: (1) H/O colonoscopy (2) H/O esophagogastroduodenoscopy (3) H/O exploratory laparotomy (4) H/O tubal ligation (5) H/O: hysterectomy (6) Hysterectomy Family History FHx: diabetes FHx: hypertension Social History Smoking Status: Current Every Day Smoker Alcohol Use: occasionally Drug Use: none Housing Status: lives with family Occupation Status: employed Current/Historical Medications Scheduled Escitalopram Oxalate (Escitalopram Oxalate), 20 MG PO HS Naproxen (Aleve), 440 MG PO UD Omeprazole (Prilosec), 20 MG PO BID Ranitidine HCl (Ranitidine HCl), 150 MG PO BID Scheduled PRN Dicyclomine Hcl (Dicyclomine Hcl), 10 MG PO QID PRN for Abdominal Pain Allergies Coded Allergies: Ciprofloxacin (Verified Adverse Reaction, Mild, GI SYMPTOMS, 12/15/16) Physical Exam Vital Signs Date Time Temp Pulse Resp B/P (MAP) Pulse Ox O2 Delivery O2 Flow Rate FiO2 12/16/16 02:01 100/69 12/16/16 01:56 73 16 96 12/16/16 01:46 76 16 95 12/16/16 01:36 86 15 97 12/16/16 01:31 106/72 12/16/16 01:26 75 20 95 12/16/16 01:16 76 18 94 12/16/16 01:06 76 21 92 12/16/16 01:01 116/78 12/16/16 00:51 79 23 94 12/16/16 00:36 71 13 96 12/16/16 00:31 123/79 12/16/16 00:21 72 23 94 12/16/16 00:16 75 118/84 94 Room Air 12/15/16 23:34 69 94 12/15/16 23:31 139/92 12/15/16 23:24 77 19 93 12/15/16 23:14 80 14 94 12/15/16 23:04 76 19 96 12/15/16 22:54 78 20 93 12/15/16 22:44 73 21 94 12/15/16 22:34 74 19 97 12/15/16 22:30 76 12/15/16 22:26 95 Room Air 12/15/16 22:21 36.7 75 16 135/87 95 Room Air 12/15/16 22:21 135/87 Physical Exam GENERAL: Patient awake, alert, oriented x 3. Patient follows commands. Patient in moderate distress. SKIN: No erythema, pallor, cyanosis or rash HEENT: Normal head, pupils equal, reactive to light and accommodation. Ears normal. Oral cavity and posterior pharynx appear normal. Neck: Without adenopathy, no neck vein distention. LUNGS: Clear to auscultation. No wheezes, no rales, no rhonchi. HEART: No murmurs. No gallops. No rubs ABDOMEN: No masses, no rebound, no hepatomegaly or splenomegaly. EXTREMITIES: No signs of trauma. No pedal or pretibial edema. No calf or thigh tenderness. NEUROLOGIC: Cranial nerves II-XII within normal limits. No gross motor sensory function deficits. Medical Decision & Procedures ER Provider Diagnostic Interpretation: Radiology results as stated below per my review and radiologist interpretation: CT HEAD: No ICH, mass effect or edema. No evidence of acute cortical stroke. Visualized sinuses and mastoid air cells are clear. Radiologist: Domingo Ng M.D. CHEST X-RAY: No acute infiltrate, no pneumothorax, no hemothorax. Laboratory Results 12/16/16 00:00 Red Blood Count 3.93, Mean Corpuscular Volume 93.4, Mean Corpuscular Hemoglobin 31.6, Mean Corpuscular Hemoglobin Concent 33.8, Mean Platelet Volume 10.1, Neutrophils (%) (Auto) 64.1, Lymphocytes (%) (Auto) 22.3, Monocytes (%) (Auto) 9.7, Eosinophils (%) (Auto) 3.2, Basophils (%) (Auto) 0.4, Neutrophils # (Auto) 4.75, Lymphocytes # (Auto) 1.65, Monocytes # (Auto) 0.72, Eosinophils # (Auto) 0.24, Basophils # (Auto) 0.03 12/16/16 00:00 Test 12/16/16 00:00 White Blood Count 7.41 K/uL (4.8-10.8) Red Blood Count 3.93 M/uL (4.2-5.4) Hemoglobin 12.4 g/dL (12.0-16.0) Hematocrit 36.7 % (37-47) Mean Corpuscular Volume 93.4 fL (80-100) Mean Corpuscular Hemoglobin 31.6 pg (25-34) Mean Corpuscular Hemoglobin Concent 33.8 g/dl (32-36) Platelet Count 213 K/uL (130-400) Mean Platelet Volume 10.1 fL (7.4-10.4) Neutrophils (%) (Auto) 64.1 % Lymphocytes (%) (Auto) 22.3 % Monocytes (%) (Auto) 9.7 % Eosinophils (%) (Auto) 3.2 % Basophils (%) (Auto) 0.4 % Neutrophils # (Auto) 4.75 K/uL (1.4-6.5) Lymphocytes # (Auto) 1.65 K/uL (1.2-3.4) Monocytes # (Auto) 0.72 K/uL (0.11-0.59) Eosinophils # (Auto) 0.24 K/uL (0-0.5) Basophils # (Auto) 0.03 K/uL (0-0.2) RDW Standard Deviation 44.6 fL (36.4-46.3) RDW Coefficient of Variation 13.0 % (11.5-14.5) Immature Granulocyte % (Auto) 0.3 % Immature Granulocyte # (Auto) 0.02 K/uL (0.00-0.02) Prothrombin Time 11.5 SECONDS (9.0-12.0) Prothromb Time International Ratio 1.1 (0.9-1.1) Activated Partial Thromboplast Time 25.1 SECONDS (21.0-31.0) Partial Thromboplastin Ratio 1.0 Anion Gap 6.0 mmol/L (3-11) Est Creatinine Clear Calc Drug Dose 113.0 ml/min Estimated GFR () 127.6 Estimated GFR (Non- 110.1 BUN/Creatinine Ratio 9.4 (10-20) Calcium Level 8.4 mg/dl (8.5-10.1) Total Bilirubin 0.3 mg/dl (0.2-1) Aspartate Amino Transf (AST/SGOT) 19 U/L (15-37) Alanine Aminotransferase (ALT/SGPT) 20 U/L (12-78) Alkaline Phosphatase 74 U/L (45-117) Total Protein 6.8 gm/dl (6.4-8.2) Albumin 3.8 gm/dl (3.4-5.0) Globulin 3.0 gm/dl (2.5-4.0) Albumin/Globulin Ratio 1.3 (0.9-2) Laboratory results as stated above per my review. Medications Administered Medications (Trade) Dose Ordered Sig/Randi Route Start Time Stop Time Status Last Admin Dose Admin Morphine Sulfate (MoRPHine SULFATE INJ) 6 mg NOW STAT IV 12/15/16 22:53 12/15/16 22:57 DC 12/15/16 23:32 6 MG Ondansetron HCl (Zofran Inj) 4 mg Q1HWA PRN IV 12/15/16 23:00 01/14/17 22:59 12/15/16 23:32 4 MG Morphine Sulfate (MoRPHine SULFATE INJ) 4 mg NOW STAT IV 12/16/16 00:45 12/16/16 00:46 DC 12/16/16 00:57 4 MG ED Course 2247: Past medical records reviewed. The patient was evaluated in room A3. A complete history and physical examination was performed. 2253: Ordered Morphine Sulfate 6 mg IV. 2300: Ordered Zofran 4 mg IV. 0043: I reevaluated the patient at this time. She still has a slight headache. 0045: Ordered Morphine Sulfate 4 mg IV. 0148: Upon reevaluation, the patient appeared to have improvement of her symptoms. I discussed today's findings with she. She verbalized agreement of the treatment plan. The patient was discharged home. Medical Decision Differential Diagnosis includes; Subarachnoid bleed, CVA, TIA, vasovagal episode , conversion reaction, meningitis encephalitis. The patient is here with a severe headache. She had a short spell at home where she was verbally unresponsive but did not stop breathing or lose her pulse. She had noted skin color change. The patient had no seizure-like activity. She denies any prior history of any neurologic events like this. Examination now reveals no neurologic deficits. She is awake and alert. She has no visual or auditory changes. Patient does not have meningeal findings. Multiple labs and imaging were performed. CT does not reveal any signs of bleed or stroke. I do not believe the patient requires a lumbar puncture. White count is not elevated. The patient improved with the above medications. The patient may have had a migraine variant. I do not believe the patient requires admission to the hospital at this time. She will require follow-up by her family physician or neurologist. Medication Reconcilliation Current Medication List: was personally reviewed by me Blood Pressure Screening Patient's blood pressure: Normal blood pressure Impression Primary Impression: Near syncope Additional Impression: Headache Scribe Attestation The scribe's documentation has been prepared under my direction and personally reviewed by me in its entirety. I confirm that the note above accurately reflects all work, treatment, procedures, and medical decision making performed by me. Departure Information Dispostion Home / Self-Care Referrals Tara Byrne PA-C (PCP) Patient Instructions My [facility] Additional Instructions Follow-up with your family physician within next 7 days. Return here sooner if your headache gets worse or you have another passing out episode. 1000 mg of Tylenol every 6 hours as needed for headache. Problem Qualifiers
[2016-12-15] MEDS ORDERED: ONDANSETRON INJ 2 MG/ML 2 ML VIAL IV PRN (23:00)
[2016-12-16 00:17] LABS: BASO % 0.4 %; BASO ABS # 0.03 K/uL (0-0.2); COMPLETE YES; EOS % 3.2 %; HEMATOCRIT 36.7 % (37-47); IG% 0.3 %; LYMPH % 22.3 %; LYMPH ABS # 1.65 K/uL (1.2-3.4); MEAN CELL VOLUME 93.4 fL (80-100); MEAN CORPUSCULAR HEMOGLOBIN 31.6 pg (25-34); MEAN CORPUSCULAR HGB CONC 33.8 g/dl (32-36); MEAN PLATELET VOLUME 10.1 fL (7.4-10.4); MONO % 9.7 %; NEUT % 64.1 %; PLATELET COUNT 213 K/uL (130-400); RED BLOOD COUNT 3.93 M/uL (4.2-5.4); WHITE BLOOD COUNT 7.41 K/uL (4.8-10.8)
[2016-12-16 00:31] LABS: INR 1.1 (0.9-1.1); PROTHROMBIN TIME (PATIENT) 11.5 SECONDS (9.0-12.0)
[2016-12-16 00:34] LABS: BUN/CREATININE RATIO 9.4 (10-20); CALCIUM 8.4 mg/dl (8.5-10.1); CREATININE 0.6 mg/dl (0.60-1.20); POTASSIUM 3.7 mmol/L (3.5-5.1)
[2016-12-16 00:37] LABS: ALB/GLOB RATIO 1.3 (0.9-2)
[2016-12-16] MEDS ORDERED: MoRPHine SULFATE 4 MG/ML 1 ML CARP\\VIAL IV STA (00:45)
[2016-12-16 01:56] VITALS: PULSE 73; O2SAT 96
[2016-12-16 02:01] VITALS: BP 100/69
--- NOTE | 2016-12-16 06:57 | DIAGNOSTIC IMAGING REPORT ---
HEAD CT NONCONTRAST CT DOSE: 537.48 mGy.cm HISTORY: worst headache TECHNIQUE: Multiaxial CT images of the head were performed without the use of intravenous contrast. Automated exposure control was utilized for this study. A dose lowering technique was utilized adhering to the principles of ALARA. Comparison: Head CT 06/20/2016. Findings: The paranasal sinuses and mastoid air cells are clear. The calvarium and skull base are intact. The ventricles and sulci are within normal limits. There is no mass, hematoma, midline shift, or acute infarct. Impression: No acute intracranial abnormality. Electronically signed by: Juliocesar Nobles M.D. 12/16/2016 6:55 AM Dictated Date/Time: 12/16/2016 6:54 AM
--- NOTE | 2016-12-16 08:22 | DIAGNOSTIC IMAGING REPORT ---
CHEST ONE VIEW PORTABLE HISTORY: worst headache COMPARISON: Chest 12/12/2016. FINDINGS: The lungs are clear. Cardiac silhouette is normal in size. No pleural effusions. No pneumothorax. IMPRESSION: No acute process. Electronically signed by: Juliocesar Nobles M.D. 12/16/2016 8:20 AM Dictated Date/Time: 12/16/2016 8:19 AM
== END 2016-12-16 02:21 | disposition home or self-care (01) ==
LOC: EDBD 22:14 → C.EDA 22:15
DX: R55 Syncope and collapse (principal); R51 Headache; F41.9 Anxiety disorder, unspecified; F31.9 Bipolar disorder, unspecified; F32.9 Major depressive disorder, single episode, unspecified; K21.9 Gastro-esophageal reflux disease without esophagitis; E87.6 Hypokalemia; Z83.3 Family history of diabetes mellitus; Z82.49 Family history of ischemic heart disease and other diseases of the circulatory system; F17.200 Nicotine dependence, unspecified, uncomplicated

== ENCOUNTER 2017-01-10 18:09 | Emergency (ER) | payer OTHER ==
[~2017-01-10] VITALS: Ht 160 cm; Wt 69.0 kg
[2017-01-10 18:14] VITALS: TEMP 36.6; Ht 160 cm; Wt 69.0 kg
[2017-01-10] MEDS ORDERED: SODIUM CHLORIDE 0.9% 1000ML 1,000 ML IV STA (18:41)
[2017-01-10 18:53] VITALS: O2SAT 96
--- NOTE | 2017-01-10 19:04 | DIAGNOSTIC IMAGING REPORT ---
CHEST ONE VIEW PORTABLE CLINICAL HISTORY: 46 years-old Female presenting with Evaluate Fever/Sepsis. TECHNIQUE: Portable upright AP view of the chest was obtained. COMPARISON: 12/15/2016. FINDINGS: Cardiomediastinal silhouette normal. Lungs and pleural spaces clear. Osseous structures normal. Upper abdomen normal. IMPRESSION: 1. No acute cardiopulmonary disease. Electronically signed by: John Leggett M.D. 01/10/2017 7:03 PM Dictated Date/Time: 01/10/2017 7:02 PM
[2017-01-10 19:36] LABS: BASO % 0.6 %; BASO ABS # 0.04 K/uL (0-0.2); COMPLETE YES; EOS % 3.1 %; HEMATOCRIT 38.4 % (37-47); IG% 0.2 %; LYMPH % 34.6 %; LYMPH ABS # 2.13 K/uL (1.2-3.4); MEAN CELL VOLUME 93.7 fL (80-100); MEAN CORPUSCULAR HEMOGLOBIN 32.2 pg (25-34); MEAN CORPUSCULAR HGB CONC 34.4 g/dl (32-36); MEAN PLATELET VOLUME 9.6 fL (7.4-10.4); MONO % 8.4 %; NEUT % 53.1 %; PLATELET COUNT 298 K/uL (130-400); WHITE BLOOD COUNT 6.16 K/uL (4.8-10.8)
[2017-01-10 19:46] LABS: INR 1.1 (0.9-1.1); PROTHROMBIN TIME (PATIENT) 11.6 SECONDS (9.0-12.0)
[2017-01-10 19:52] LABS: URINE APPEARANCE CLOUDY (CLEAR); URINE BILIRUBIN NEG (NEG); URINE COLOR YELLOW; URINE EPITHELIAL CELL AUTO 20-30 /lpf (0-5); URINE NITRITE NEG (NEG); URINE SPECIFIC GRAVITY 1.018 (1.000-1.030); UROBILINOGEN NEG (NEG); ZZUR CULT IF INDIC CLEAN CATCH NO
[2017-01-10 19:53] LABS: MANUAL MICROSCOPIC REQUIRED? NO; REVIEW REQ? NO
[2017-01-10 19:56] LABS: ALT/SGPT 24 U/L (12-78); BLOOD UREA NITROGEN 7 mg/dl (7-18); BUN/CREATININE RATIO 10.1 (10-20); CALCIUM 8.6 mg/dl (8.5-10.1); CARBON DIOXIDE 26 mmol/L (21-32); CHLORIDE 106 mmol/L (98-107); CREATININE 0.73 mg/dl (0.60-1.20); GLUCOSE 79 mg/dl (70-99); POTASSIUM 3.7 mmol/L (3.5-5.1); SODIUM 141 mmol/L (136-145)
[2017-01-10 20:06] LABS: ALKALINE PHOSPHATASE 91 U/L (45-117); AST/SGOT 35 U/L (15-37); CKMB/CK RATIO 0.9 (0-3.0); THYROID STIMULATING HORMONE 0.636 uIu/ml (0.300-4.500)
[2017-01-10 20:20] LABS: BENZODIAZEPINE, URINE NEG (NEG); COCAINE,URINE NEG (NEG); PHENCYCLIDINE, URINE NEG (NEG)
[2017-01-10 21:42] VITALS: BP 132/93; PULSE 79; O2SAT 94
--- NOTE | 2017-01-10 21:58 | EMERGENCY ROOM VISIT NOTE ---
History Report prepared by Zaira: Suraj Alas Under the Supervision of: Dr. Cliff Bragg D.O. 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 Pt states she drinks 2 beers a day. History of Present Illness The patient is a 46 year old female who presents to the Emergency Room with complaints of dizziness that began this morning. Earlier in the morning, the patient was walking to her car to go to work. The next thing she remembers is waking up 2 and a half hours later face down on the concrete. She then went inside and slept all day. Her brought her here because she has been feeling "off" ever since. She states that she is dizzy and does not feel stable on her feet. She denies any trauma or pain at this time. She states that she did not drink any alcohol today. Source of History: patient Onset: this morning Position: other Symptom Intensity: moderate Quality: other (Dizziness) Timing: constant Associated Symptoms: + LOC Note: She denies any trauma or pain at this time. Review of Systems See HPI for pertinent positives & negatives. A total of 10 systems reviewed and were otherwise negative. Past Medical & Surgical Medical Problems: (1) Alcohol intoxication (2) Anxiety (3) Bipolar disorder (4) Chest pain (5) Depression (6) Epigastric abdominal pain (7) Fall (8) Gastro-Esophageal Reflux Disease Without Esophagitis (9) Hiatal hernia (10) Hypokalemia (11) Lumbar contusion (12) Migraine (13) Nausea, vomiting and diarrhea (14) Precordial chest pain (15) Right flank pain (16) RUQ abdominal pain Surgical Problems: (1) H/O colonoscopy (2) H/O esophagogastroduodenoscopy (3) H/O exploratory laparotomy (4) H/O tubal ligation (5) H/O: hysterectomy (6) Hysterectomy Family History FHx: diabetes FHx: hypertension Social History Smoking Status: Current Every Day Smoker Smokeless Tobacco Use: No Alcohol Use: occasionally Drug Use: none Marital Status: Housing Status: lives with family Occupation Status: employed Current/Historical Medications Scheduled Escitalopram Oxalate (Escitalopram Oxalate), 20 MG PO HS Omeprazole (Prilosec), 20 MG PO BID Ranitidine HCl (Ranitidine HCl), 150 MG PO BID Scheduled PRN Naproxen (Aleve), 440 MG PO UD PRN for Pain Allergies Coded Allergies: Ciprofloxacin (Verified Adverse Reaction, Mild, GI SYMPTOMS, 01/10/17) Physical Exam Vital Signs Date Time Temp Pulse Resp B/P (MAP) Pulse Ox O2 Delivery O2 Flow Rate FiO2 01/10/17 21:42 79 20 132/93 94 Room Air 01/10/17 19:51 76 18 129/89 94 Room Air 01/10/17 19:42 81 01/10/17 18:53 96 Room Air 01/10/17 18:14 36.6 86 16 132/87 94 Room Air Physical Exam CONSTITUTIONAL/VITAL SIGNS: Reviewed / noted above. GENERAL: Non-toxic in appearance. Smell of alcohol in the room. INTEGUMENTARY: Warm, dry, and [place]. HEAD: Normocephalic. EYES: without scleral icterus or trauma. ENT/OROPHARYNX: clear with dry mucous membranes. LYMPHADENOPATHY/NECK: Is supple without lymphadenopathy or meningismus. RESPIRATORY: Lungs clear and equal. CARDIOVASCULAR: Regular rate and rhythm. GI/ABDOMEN: Soft and nontender. No organomegaly or pulsatile mass. No rebound or guarding. Normal bowel sounds. EXTREMITIES: Warm and well perfused. BACK: No CVA tenderness. NEUROLOGICAL: Intact without focal deficits. PSYCHIATRIC: normal affect. MUSCULOSKELETAL: Normally developed with good muscle tone. Medical Decision & Procedures ER Provider Diagnostic Interpretation: Radiology results as stated below per my review and radiologist interpretation: CHEST ONE VIEW PORTABLE CLINICAL HISTORY: 46 years-old Female presenting with Evaluate Fever/Sepsis. TECHNIQUE: Portable upright AP view of the chest was obtained. COMPARISON: 12/15/2016. FINDINGS: Cardiomediastinal silhouette normal. Lungs and pleural spaces clear. Osseous structures normal. Upper abdomen normal. IMPRESSION: 1. No acute cardiopulmonary disease. Electronically signed by: John Leggett M.D. 01/10/2017 7:03 PM Dictated Date/Time: 01/10/2017 7:02 PM Laboratory Results 01/10/17 18:45 Red Blood Count 4.10, Mean Corpuscular Volume 93.7, Mean Corpuscular Hemoglobin 32.2, Mean Corpuscular Hemoglobin Concent 34.4, Mean Platelet Volume 9.6, Neutrophils (%) (Auto) 53.1, Lymphocytes (%) (Auto) 34.6, Monocytes (%) (Auto) 8.4, Eosinophils (%) (Auto) 3.1, Basophils (%) (Auto) 0.6, Neutrophils # (Auto) 3.27, Lymphocytes # (Auto) 2.13, Monocytes # (Auto) 0.52, Eosinophils # (Auto) 0.19, Basophils # (Auto) 0.04 01/10/17 18:45 Test 01/10/17 18:36 01/10/17 18:45 01/10/17 19:13 01/10/17 19:34 Bedside Glucose 88 mg/dl (70-90) White Blood Count 6.16 K/uL (4.8-10.8) Red Blood Count 4.10 M/uL (4.2-5.4) Hemoglobin 13.2 g/dL (12.0-16.0) Hematocrit 38.4 % (37-47) Mean Corpuscular Volume 93.7 fL (80-100) Mean Corpuscular Hemoglobin 32.2 pg (25-34) Mean Corpuscular Hemoglobin Concent 34.4 g/dl (32-36) Platelet Count 298 K/uL (130-400) Mean Platelet Volume 9.6 fL (7.4-10.4) Neutrophils (%) (Auto) 53.1 % Lymphocytes (%) (Auto) 34.6 % Monocytes (%) (Auto) 8.4 % Eosinophils (%) (Auto) 3.1 % Basophils (%) (Auto) 0.6 % Neutrophils # (Auto) 3.27 K/uL (1.4-6.5) Lymphocytes # (Auto) 2.13 K/uL (1.2-3.4) Monocytes # (Auto) 0.52 K/uL (0.11-0.59) Eosinophils # (Auto) 0.19 K/uL (0-0.5) Basophils # (Auto) 0.04 K/uL (0-0.2) RDW Standard Deviation 45.9 fL (36.4-46.3) RDW Coefficient of Variation 13.4 % (11.5-14.5) Immature Granulocyte % (Auto) 0.2 % Immature Granulocyte # (Auto) 0.01 K/uL (0.00-0.02) Prothrombin Time 11.6 SECONDS (9.0-12.0) Prothromb Time International Ratio 1.1 (0.9-1.1) Activated Partial Thromboplast Time 26.6 SECONDS (21.0-31.0) Partial Thromboplastin Ratio 1.0 Anion Gap 9.0 mmol/L (3-11) Est Creatinine Clear Calc Drug Dose 90.7 ml/min Estimated GFR () 115.3 Estimated GFR (Non- 99.5 BUN/Creatinine Ratio 10.1 (10-20) Calcium Level 8.6 mg/dl (8.5-10.1) Total Bilirubin 0.3 mg/dl (0.2-1) Direct Bilirubin 0.1 mg/dl (0-0.2) Aspartate Amino Transf (AST/SGOT) 35 U/L (15-37) Alanine Aminotransferase (ALT/SGPT) 24 U/L (12-78) Alkaline Phosphatase 91 U/L (45-117) Total Creatine Kinase 102 U/L (26-192) Creatine Kinase MB 0.9 ng/ml (0.5-3.6) Creatine Kinase MB Ratio 0.9 (0-3.0) Troponin I < 0.015 ng/ml (0-0.045) Total Protein 7.8 gm/dl (6.4-8.2) Albumin 4.1 gm/dl (3.4-5.0) Lipase 95 U/L (73-393) Thyroid Stimulating Hormone (TSH) 0.636 uIu/ml (0.300-4.500) Ethyl Alcohol mg/dL 173.0 mg/dl (0-3) Urine Color YELLOW Urine Appearance CLOUDY (CLEAR) Urine pH 5.0 (4.5-7.5) Urine Specific [place] 1.018 (1.000-1.030) Urine Protein NEG (NEG) Urine Glucose (UA) NEG (NEG) Urine Ketones NEG (NEG) Urine Occult Blood 1+ (NEG) Urine Nitrite NEG (NEG) Urine Bilirubin NEG (NEG) Urine Urobilinogen NEG (NEG) Urine Leukocyte Esterase NEG (NEG) Urine WBC (Auto) 1-5 /hpf (0-5) Urine RBC (Auto) 0-4 /hpf (0-4) Urine Hyaline Casts (Auto) 1-5 /lpf (0-5) Urine Epithelial Cells (Auto) 20-30 /lpf (0-5) Urine Bacteria (Auto) NEG (NEG) Urine Test NEG (NEG) Urine Opiates Screen POS (NEG) Urine Methadone, Qualitative NEG (NEG) Urine Barbiturates NEG (NEG) Urine Phencyclidine (PCP) Level NEG (NEG) Ur Amphetamine/Methamphetamine NEG (NEG) MDMA (Ecstasy) Screen POS (NEG) Urine Benzodiazepines Screen NEG (NEG) Urine Cocaine Metabolite NEG (NEG) Urine Marijuana (THC) NEG (NEG) Laboratory results as stated above per my review. Medications Administered Medications (Trade) Dose Ordered Sig/Randi Route Start Time Stop Time Status Last Admin Dose Admin Sodium Chloride 1,000 ml @ 999 mls/hr Q1H1M STAT IV 01/10/17 18:41 01/10/17 19:41 DC 01/10/17 19:50 999 MLS/HR ECG Indication: syncope Rate (beats per minute): 75 Rhythm: normal sinus Findings: no acute ischemic change, no ectopy ED Course 1838: Previous medical records were reviewed. The patient was evaluated in room B11B. A complete history and physical examination was performed. 184: Ordered Sodium Chloride 1000 ml @ 999 mls/hr IV 2200: On reevaluation, the patient is resting. I discussed the results and findings with the patient. She verbalized agreement of the treatment plan. She was discharged home. Medical Decision Differentials include: Acute coronary syndrome, myocardial infarction, CVA, TIA , anemia, infection, pneumonia, UTI, pyelonephritis, poor nutrition, dehydration , electrolyte disturbance, and hypoglycemia. This is a 46-year-old female who presents to the ED with a chief complaint of dizziness. The patient states that she feels like she may pass out this morning. She denies drinking alcohol today. The patient denies any specific symptoms at this time. Further details are noted above. The vital signs are normal. Her mouth is dry but otherwise her exam is unremarkable. EKG shows a normal sinus rhythm. CBC is normal and complete metabolic panel was normal. Troponin is negative. Tox screen is positive for opiates and alcohol level was 173. She denied drinking alcohol today. test was negative. The patient was told the results. She was hydrated with some IV fluids. She is felt to be stable for discharge. Medication Reconcilliation Current Medication List: was personally reviewed by me Blood Pressure Screening Patient's blood pressure: Normal blood pressure Blood pressure disposition: Did not require urgent referral Impression Primary Impression: Dizziness Additional Impression: Alcohol intoxication Scribe Attestation The scribe's documentation has been prepared under my direction and personally reviewed by me in its entirety. I confirm that the note above accurately reflects all work, treatment, procedures, and medical decision making performed by me. Departure Information Dispostion Home / Self-Care Referrals Tara Byrne PA-C (PCP) Forms HOME CARE DOCUMENTATION FORM, IMPORTANT VISIT INFORMATION Patient Instructions My [facility] Additional Instructions Follow-up with your doctor for further care and evaluation in 1-2 days. Return to the emergency department for worsening or new symptoms or any concerns. You have been examined and treated today on an emergency basis only. This is not a substitute for, or an effort to provide, complete comprehensive medical care. It is impossible to recognize and treat all injuries or illnesses in a single emergency department visit. It is therefore important that you follow up closely with your doctor. Call as soon as possible for an appointment. Avoid excessive alcohol consumption. Problem Qualifiers
[2017-01-14 12:38] LABS: COD UR NEGATIVE NG/ML (CUTOFF=50); HYDROCOD UR 9040 NG/ML (CUTOFF=50); HYDROMOR UR 77 NG/ML (CUTOFF=50); MORPHINE UR NEGATIVE NG/ML (CUTOFF=50); NORHYDROCODONE CONF UR 2360 NG/ML (CUTOFF=50); OXYMORPH UR NEGATIVE NG/ML (CUTOFF=50)
== END 2017-01-10 22:15 | disposition home or self-care (01) ==
LOC: C.EDB 18:10
DX: F10.920 Alcohol use, unspecified with intoxication, uncomplicated (principal); Y90.6 Blood alcohol level of 120-199 mg/100 ml; F41.9 Anxiety disorder, unspecified; F31.9 Bipolar disorder, unspecified; K21.9 Gastro-esophageal reflux disease without esophagitis; Z90.710 Acquired absence of both cervix and uterus; Z98.51 Tubal ligation status; F17.210 Nicotine dependence, cigarettes, uncomplicated; Z83.3 Family history of diabetes mellitus; Z82.49 Family history of ischemic heart disease and other diseases of the circulatory system; Z79.899 Other long term (current) drug therapy

== ENCOUNTER 2017-01-21 14:29 | Emergency (ER) | payer OTHER ==
[~2017-01-21] VITALS: Ht 160 cm; Wt 72.8 kg
[2017-01-21 14:32] VITALS: TEMP 37; Ht 160 cm; Wt 72.8 kg
[2017-01-21] MEDS ORDERED: ALBUTEROL HFA 8 GM INHALER INH ONE (14:45)
--- NOTE | 2017-01-21 14:49 | EMERGENCY ROOM VISIT NOTE ---
History Report prepared by Zaira: Tangela Colon Under the Supervision of: Dr. Braeden Brar M.D. First contact with patient: 14:33 Chief Complaint: CHEST PAIN Stated Complaint: SOB, CHEST DISCOMFORT History of Present Illness The patient is a 46 year old female who presents to the Emergency Room with complaints of intermittent shortness of breath for the past few months. Her shortness of breath is worsened by exertion. She is a current smoker but states she is trying to quit and has tried taking Chantix and Wellbutrin in order to help her quit. She has cut back on her daily cigarettes over the past several weeks. The patient had a CT Chest, ordered by her doctor, recently that showed "several nodules" on her lungs. A repeat CT performed last week showed diminished lung functioning at both bases. The patient was supposed to see her PCP today, but states her appointment was canceled and when she spoke to a nurse on the phone, she was referred to the ED for further evaluation. She also complains of left sided chest pain and diarrhea. She denies any fevers. She has no prior history of PE's or DVT's. She has never seen Pulmonology before. A stress test performed approximately 1 year ago came back unremarkable. 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 A total of 10 systems reviewed and were otherwise negative. Past Medical & Surgical Medical Problems: (1) Alcohol intoxication (2) Anxiety (3) Bipolar disorder (4) Chest pain (5) Depression (6) Epigastric abdominal pain (7) Fall (8) Gastro-Esophageal Reflux Disease Without Esophagitis (9) Hiatal hernia (10) Hypokalemia (11) Lumbar contusion (12) Migraine (13) Nausea, vomiting and diarrhea (14) Precordial chest pain (15) Right flank pain (16) RUQ abdominal pain Surgical Problems: (1) H/O colonoscopy (2) H/O esophagogastroduodenoscopy (3) H/O exploratory laparotomy (4) H/O tubal ligation (5) H/O: hysterectomy (6) Hysterectomy Family History FHx: diabetes FHx: hypertension Social History Smoking Status: Current Every Day Smoker Alcohol Use: occasionally Drug Use: none Marital Status: Housing Status: lives with family Occupation Status: employed Current/Historical Medications Scheduled Albuterol Hfa (Ventolin Hfa), 3 PUFFS INH Q6H Bupropion Hcl (Bupropion Hcl Xl), 150 MG PO DAILY Escitalopram Oxalate (Escitalopram Oxalate), 20 MG PO HS Omeprazole (Prilosec), 20 MG PO BID Ranitidine HCl (Ranitidine HCl), 150 MG PO BID Scheduled PRN Naproxen (Aleve), 440 MG PO UD PRN for Pain Allergies Coded Allergies: Ciprofloxacin (Verified Adverse Reaction, Mild, GI SYMPTOMS, 01/10/17) Physical Exam Vital Signs Date Time Temp Pulse Resp B/P (MAP) Pulse Ox O2 Delivery O2 Flow Rate FiO2 01/21/17 15:33 76 01/21/17 15:08 97 Room Air 01/21/17 15:03 97 Room Air 01/21/17 14:32 37.0 80 20 124/81 94 Room Air Physical Exam GENERAL: Patient is in no acute distress. HEENT: No acute trauma, normocephalic atraumatic, mucous membranes moist, no nasal congestion, no scleral icterus. NECK: No stridor, no adenopathy, no meningismus, trachea is midline. LUNGS: Somewhat diminished breath sounds, breath sounds are equal, a few scattered wheezes heard, no respiratory distress. HEART: Without murmurs gallops or rubs, regular rate and rhythm. ABDOMEN: Soft, nontender, bowel sounds positive, no hernias, no peritonitis. EXTREMITIES: No cyanosis or edema, full range of motion of all the joints without pain or difficulty, no signs for acute trauma. NEUROLOGIC: Oriented x 3, no acute motor or sensory deficits, no focal weakness. SKIN: No rash, no jaundice, no diaphoresis. Medical Decision & Procedures ER Provider Diagnostic Interpretation: Radiology results as stated below per my review and radiologist interpretation: CHEST ONE VIEW PORTABLE CLINICAL HISTORY: EVALUATE RESPIRATORY DISTRESS. DYSPNEA dyspnea COMPARISON STUDY: 01/10/2017 FINDINGS: The bones soft tissues and hemidiaphragms are normal. The cardiomediastinal silhouette is normal. The lungs are clear. The pulmonary vasculature is normal. IMPRESSION: Negative chest. The above report was generated using voice recognition software. It may contain grammatical, syntax or spelling errors. Electronically signed by: Roland Bonilla M.D. 01/21/2017 3:00 PM Laboratory Results 01/21/17 15:05 Red Blood Count 4.15, Mean Corpuscular Volume 93.3, Mean Corpuscular Hemoglobin 30.4, Mean Corpuscular Hemoglobin Concent 32.6, Mean Platelet Volume 9.5, Neutrophils (%) (Auto) 50.8, Lymphocytes (%) (Auto) 38.3, Monocytes (%) (Auto) 7.6, Eosinophils (%) (Auto) 2.4, Basophils (%) (Auto) 0.6, Neutrophils # (Auto) 3.36, Lymphocytes # (Auto) 2.53, Monocytes # (Auto) 0.50, Eosinophils # (Auto) 0.16, Basophils # (Auto) 0.04 01/21/17 15:05 Test 01/21/17 15:05 White Blood Count 6.61 K/uL (4.8-10.8) Red Blood Count 4.15 M/uL (4.2-5.4) Hemoglobin 12.6 g/dL (12.0-16.0) Hematocrit 38.7 % (37-47) Mean Corpuscular Volume 93.3 fL (80-100) Mean Corpuscular Hemoglobin 30.4 pg (25-34) Mean Corpuscular Hemoglobin Concent 32.6 g/dl (32-36) Platelet Count 238 K/uL (130-400) Mean Platelet Volume 9.5 fL (7.4-10.4) Neutrophils (%) (Auto) 50.8 % Lymphocytes (%) (Auto) 38.3 % Monocytes (%) (Auto) 7.6 % Eosinophils (%) (Auto) 2.4 % Basophils (%) (Auto) 0.6 % Neutrophils # (Auto) 3.36 K/uL (1.4-6.5) Lymphocytes # (Auto) 2.53 K/uL (1.2-3.4) Monocytes # (Auto) 0.50 K/uL (0.11-0.59) Eosinophils # (Auto) 0.16 K/uL (0-0.5) Basophils # (Auto) 0.04 K/uL (0-0.2) RDW Standard Deviation 45.6 fL (36.4-46.3) RDW Coefficient of Variation 13.3 % (11.5-14.5) Immature Granulocyte % (Auto) 0.3 % Immature Granulocyte # (Auto) 0.02 K/uL (0.00-0.02) Anion Gap 8.0 mmol/L (3-11) Est Creatinine Clear Calc Drug Dose 93.0 ml/min Estimated GFR () 115.3 Estimated GFR (Non- 99.5 BUN/Creatinine Ratio 12.2 (10-20) Calcium Level 7.8 mg/dl (8.5-10.1) Troponin I < 0.015 ng/ml (0-0.045) Laboratory results reviewed by me. Medications Administered Medications (Trade) Dose Ordered Sig/Randi Route Start Time Stop Time Status Last Admin Dose Admin Albuterol (Ventolin Hfa Inhaler) 4 puffs NOW ONCE INH 01/21/17 14:45 01/21/17 14:46 DC 01/21/17 15:01 4 PUFFS ECG Indication: SOB/dyspnea Rate (beats per minute): 85 Rhythm: normal sinus Findings: no acute ischemic change, no ectopy ED Course 1437: The patient was evaluated in room C10. A complete history and physical exam was performed. 1445: Albuterol 4 puffs INH. 1551: Peak flow before the albuterol was 320, peak flow after was 400. 1555: I reevaluated the patient. She is feeling well and resting comfortably. I discussed her results and discharge instructions and she verbalized complete understanding and agreement. Medical Decision The differential diagnoses considered include COPD, bronchospasm, bronchitis, pneumonia, anemia, [place], PE and heart failure. There is no leukocytosis or concerning anemia. No significant electrolyte abnormality or kidney failure. EKG shows a normal sinus rhythm, no ischemia. Cardiac enzyme testing times one is not consistent with acute cardiac injury. Chest x-ray does not show CHF, pneumonia or pneumothorax. The patient was given albuterol via MDI. Her peak flow improved from use of the albuterol. Peak flow went from 320--400. The patient is a long-time smoker. Her breath sounds are somewhat diminished on exam and there were a few wheezes. I suspect she has COPD. She is being discharged with albuterol to see if this helps her breathing. She was referred back to her doctor's office to possibly see a gyroscopic engineering technician at some point. The patient was encouraged to return if things were worsening or if she developed exertional chest pain. Medication Reconcilliation Current Medication List: was personally reviewed by me Blood Pressure Screening Patient's blood pressure: Normal blood pressure Blood pressure disposition: Did not require urgent referral Impression Primary Impression: Shortness of breath Scribe Attestation The scribe's documentation has been prepared under my direction and personally reviewed by me in its entirety. I confirm that the note above accurately reflects all work, treatment, procedures, and medical decision making performed by me. Departure Information Dispostion Home / Self-Care Prescriptions Albuterol Hfa (VENTOLIN HFA) 200 Puffs/[id number] Mcg Aers 3 PUFFS INH Q6H, #1 INHALER Prov: Braeden Brar M.D. 01/21/17 Referrals Lovely Bass DO (PCP) Patient Instructions My [facility] Additional Instructions use albuterol 3 puffs every 6 hours see geetha colon for recheck and possible pulmonology referral lab testing and chest film and ECG were ok today
--- NOTE | 2017-01-21 15:01 | DIAGNOSTIC IMAGING REPORT ---
CHEST ONE VIEW PORTABLE CLINICAL HISTORY: EVALUATE RESPIRATORY DISTRESS. DYSPNEA dyspnea COMPARISON STUDY: 01/10/2017 FINDINGS: The bones soft tissues and hemidiaphragms are normal. The cardiomediastinal silhouette is normal. The lungs are clear. The pulmonary vasculature is normal. IMPRESSION: Negative chest. The above report was generated using voice recognition software. It may contain grammatical, syntax or spelling errors. Electronically signed by: Roland Bonilla M.D. 01/21/2017 3:00 PM Dictated Date/Time: 01/21/2017 3:00 PM
[2017-01-21 15:03] VITALS: O2SAT 97
[2017-01-21 15:15] LABS: BASO % 0.6 %; BASO ABS # 0.04 K/uL (0-0.2); COMPLETE YES; EOS % 2.4 %; HEMATOCRIT 38.7 % (37-47); IG% 0.3 %; LYMPH % 38.3 %; LYMPH ABS # 2.53 K/uL (1.2-3.4); MEAN CELL VOLUME 93.3 fL (80-100); MEAN CORPUSCULAR HEMOGLOBIN 30.4 pg (25-34); MEAN CORPUSCULAR HGB CONC 32.6 g/dl (32-36); MEAN PLATELET VOLUME 9.5 fL (7.4-10.4); MONO % 7.6 %; NEUT % 50.8 %; PLATELET COUNT 238 K/uL (130-400); RED BLOOD COUNT 4.15 M/uL (4.2-5.4); WHITE BLOOD COUNT 6.61 K/uL (4.8-10.8)
[2017-01-21] MEDS ORDERED: BUPR150T5 PO (15:20)
[2017-01-21 15:38] LABS: BLOOD UREA NITROGEN 9 mg/dl (7-18); BUN/CREATININE RATIO 12.2 (10-20); CALCIUM 7.8 mg/dl (8.5-10.1); CARBON DIOXIDE 25 mmol/L (21-32); CHLORIDE 107 mmol/L (98-107); CREATININE 0.73 mg/dl (0.60-1.20); GLUCOSE 82 mg/dl (70-99); POTASSIUM 3.6 mmol/L (3.5-5.1); SODIUM 140 mmol/L (136-145)
[2017-01-21] MEDS ORDERED: VNTHFA/IN INH (15:57)
[2017-01-21 16:09] VITALS: BP 118/81; PULSE 85; O2SAT 97
[2017-01-21] MEDS ORDERED: RANI150T2 PO (16:47)
[2017-01-21] MEDS ORDERED: OMEP20CA9 PO (16:47)
[2017-01-21] MEDS ORDERED: LXP/20 PO (20:04)
[2017-01-21] MEDS ORDERED: NAPR1TAB9 PO (22:36)
== END 2017-01-21 16:10 | disposition home or self-care (01) ==
LOC: C.EDB 14:30 → C.EDC 16:10
DX: R06.02 Shortness of breath (principal); F41.9 Anxiety disorder, unspecified; F32.9 Major depressive disorder, single episode, unspecified; F31.9 Bipolar disorder, unspecified; K21.9 Gastro-esophageal reflux disease without esophagitis; G43.909 Migraine, unspecified, not intractable, without status migrainosus; Z83.3 Family history of diabetes mellitus; Z82.49 Family history of ischemic heart disease and other diseases of the circulatory system; F17.210 Nicotine dependence, cigarettes, uncomplicated; Z79.899 Other long term (current) drug therapy

== ENCOUNTER 2017-04-24 18:10 | Emergency (ER) | payer OTHER ==
[~2017-04-24] VITALS: Ht 162.6 cm; Wt 75.7 kg
[~2017-04-24 18:10] MED LIST changes: +BUPR150T5 PO; -DICY10CA12 PO; +VNTHFA/IN INH
[2017-04-24 18:17] VITALS: TEMP 36.7; Ht 162.6 cm; Wt 75.7 kg
[2017-04-24] MEDS ORDERED: KETOROLAC TROMETHAMINE 30 MG/ML VIAL IV STA (18:42)
--- NOTE | 2017-04-24 18:56 | EMERGENCY ROOM VISIT NOTE ---
History Report prepared by Zaira: Tre Leong Under the Supervision of: Dr. Kingston Pollock M.D. First contact with patient: 18:36 Chief Complaint: RIB PAIN Stated Complaint: RT SIDE PAIN INTO CHEST History of Present Illness The patient is a 46 year old female who presents to the Emergency Room with complaints of persistent abdominal pain for 7 hours [employer]. She notes pain under her right breast radiating to her back. She notes chest pain, shoulder pain, sneezing, and loss of appetite. She currently rates her pain an 8/10 in severity. She notes the pain worsens with movement. She denies any trauma, leg pain, leg swelling, urinary symptoms, coughs, or rashes. She notes eating applesauce and "fruit gummies." She denies taking any blood thinners. She denies any history of lung or cardiac diseases. She has a history of hysterectomy. She currently smokes 1 ppd. Source of History: patient Onset: 7 hours [employer] Position: abdomen Symptom Intensity: 8/10 Quality: other (abdominal pain) Timing: other (persistent) Modifying Factors (Worsening): movement Associated Symptoms: + chest pain, + abdominal pain, + back pain, No cough, No urinary symptoms, No rash Note: She notes shoulder pain, sneezing, and loss of appetite. She denies any trauma, leg pain or leg swelling. Review of Systems See HPI for pertinent positives & negatives. A total of 10 systems reviewed and were otherwise negative. Past Medical & Surgical Medical Problems: (1) Alcohol intoxication (2) Anxiety (3) Bipolar disorder (4) Chest pain (5) Depression (6) Epigastric abdominal pain (7) Fall (8) Gastro-Esophageal Reflux Disease Without Esophagitis (9) Hiatal hernia (10) Hypokalemia (11) Lumbar contusion (12) Migraine (13) Nausea, vomiting and diarrhea (14) Precordial chest pain (15) Right flank pain (16) RUQ abdominal pain Surgical Problems: (1) H/O colonoscopy (2) H/O esophagogastroduodenoscopy (3) H/O exploratory laparotomy (4) H/O tubal ligation (5) H/O: hysterectomy (6) Hysterectomy Family History FHx: diabetes FHx: hypertension Social History Smoking Status: Current Every Day Smoker Alcohol Use: occasionally Drug Use: none Marital Status: Housing Status: lives with family Occupation Status: employed Current/Historical Medications Scheduled Albuterol Hfa (Ventolin Hfa), 3 PUFFS INH Q6H Escitalopram Oxalate (Escitalopram Oxalate), 20 MG PO HS Omeprazole (Prilosec), 20 MG PO BID Ranitidine HCl (Ranitidine HCl), 150 MG PO BID Scheduled PRN Naproxen (Aleve), 440 MG PO UD PRN for Pain Allergies Coded Allergies: Ciprofloxacin (Verified Adverse Reaction, Mild, GI SYMPTOMS, 01/10/17) Physical Exam Vital Signs Date Time Temp Pulse Resp B/P (MAP) Pulse Ox O2 Delivery O2 Flow Rate FiO2 04/24/17 21:07 76 16 116/76 98 04/24/17 20:04 78 16 131/82 94 Room Air 04/24/17 18:17 36.7 75 18 139/83 98 Room Air Physical Exam General: Non-ill appearing middle-aged female in no acute distress. HEENT: Normal cephalic atraumatic. Pupils are equal round and reactive to light. Extraocular movements are intact. Oropharynx is pink with moist mucous membranes. No swelling of the mouth lips or tongue. Neck: Supple with a midline trachea. No meningeal signs or stiffness, no JVD or bruits. No Stridor. Chest: Clear to auscultation bilaterally. No wheezes or rhonchi. No increased work of breathing. Heart: regular rate and rhythm. Abdomen: Soft and tender to palpation in RUQ, nondistended without rebound guarding or rigidity. Extremities: No cyanosis clubbing or edema. No calf tenderness or assymetry Spine/Back. Non tender to palpation. No CVA tenderness Skin: Good turgor without rashes. Neurologic exam: Cranial nerves two through 12 are intact. Motor and sensation are intact and symmetrical throughout. Medical Decision & Procedures ER Provider Diagnostic Interpretation: Radiology results as stated below per my review and radiologist interpretation: CHEST ONE VIEW PORTABLE HISTORY: 46 years-old Female CHEST PAIN acute atypical chest pain COMPARISON: Chest radiograph 01/21/2017 TECHNIQUE: Portable upright AP view of the chest FINDINGS: Cardiac mediastinal and hilar silhouettes are within normal limits. No pneumothorax, pleural effusion, focal airspace consolidation or overt pulmonary edema. 8 mm linear calcification adjacent to the greater tuberosity right humerus suggests rotator cuff calcific tendinosis. Degenerative changes are noted within the spine. IMPRESSION: No acute cardiopulmonary process. The above report was generated using voice recognition software. It may contain grammatical, syntax or spelling errors. Electronically signed by: Alton Ureña M.D. 04/24/2017 7:24 PM Dictated Date/Time: 04/24/2017 7:23 PM GALLBLADDER-ABD LIMITED HISTORY: 46 years-old Female eval for GB disease acute right upper quadrant abdominal pain COMPARISON: Right upper quadrant ultrasound 10/21/2015, CT 07/19/2015 TECHNIQUE: Multiple real-time sonographic images of the abdominal right upper quadrant were obtained assessing grayscale appearance and color flow FINDINGS: Imaged pancreas is unremarkable. The liver is mildly echogenic and heterogeneous with poor through transmission suggesting possible fatty infiltration measuring up to 19 cm in length. No intrahepatic biliary ductal dilation. Gallbladder is unremarkable without shadowing cholelithiasis, wall thickening or pericholecystic fluid collections. Sonographic Gregorio sign reported as negative. The common bile duct is normal, 6 mm. Imaged right kidney is within normal limits measuring 10.6 cm without hydronephrosis. IMPRESSION: 1. Unremarkable sonographic appearance of the gallbladder without evidence of cholelithiasis or acute cholecystitis. 2. No biliary ductal dilation. 3. Probable fatty infiltration of the liver. The above report was generated using voice recognition software. It may contain grammatical, syntax or spelling errors. Electronically signed by: Alton Ureña M.D. 04/24/2017 8:00 PM Dictated Date/Time: 04/24/2017 7:57 PM Laboratory Results 04/24/17 18:57 Red Blood Count 3.54, Mean Corpuscular Volume 98.3, Mean Corpuscular Hemoglobin 34.2, Mean Corpuscular Hemoglobin Concent 34.8, Mean Platelet Volume 9.9, Neutrophils (%) (Auto) 55.4, Lymphocytes (%) (Auto) 30.3, Monocytes (%) (Auto) 9.9, Eosinophils (%) (Auto) 3.3, Basophils (%) (Auto) 0.8, Neutrophils # (Auto) 4.25, Lymphocytes # (Auto) 2.32, Monocytes # (Auto) 0.76, Eosinophils # (Auto) 0.25, Basophils # (Auto) 0.06 04/24/17 18:57 Test 04/24/17 18:57 04/24/17 18:58 White Blood Count 7.66 K/uL (4.8-10.8) Red Blood Count 3.54 M/uL (4.2-5.4) Hemoglobin 12.1 g/dL (12.0-16.0) Hematocrit 34.8 % (37-47) Mean Corpuscular Volume 98.3 fL (80-100) Mean Corpuscular Hemoglobin 34.2 pg (25-34) Mean Corpuscular Hemoglobin Concent 34.8 g/dl (32-36) Platelet Count 232 K/uL (130-400) Mean Platelet Volume 9.9 fL (7.4-10.4) Neutrophils (%) (Auto) 55.4 % Lymphocytes (%) (Auto) 30.3 % Monocytes (%) (Auto) 9.9 % Eosinophils (%) (Auto) 3.3 % Basophils (%) (Auto) 0.8 % Neutrophils # (Auto) 4.25 K/uL (1.4-6.5) Lymphocytes # (Auto) 2.32 K/uL (1.2-3.4) Monocytes # (Auto) 0.76 K/uL (0.11-0.59) Eosinophils # (Auto) 0.25 K/uL (0-0.5) Basophils # (Auto) 0.06 K/uL (0-0.2) RDW Standard Deviation 47.9 fL (36.4-46.3) RDW Coefficient of Variation 13.4 % (11.5-14.5) Immature Granulocyte % (Auto) 0.3 % Immature Granulocyte # (Auto) 0.02 K/uL (0.00-0.02) D-Dimer 190 ug/L FEU (0-500) Urine Color YELLOW Urine Appearance CLEAR (CLEAR) Urine pH 6.0 (4.5-7.5) Urine Specific [place] 1.015 (1.000-1.030) Urine Protein NEG (NEG) Urine Glucose (UA) NEG (NEG) Urine Ketones NEG (NEG) Urine Occult Blood TRACE (NEG) Urine Nitrite NEG (NEG) Urine Bilirubin NEG (NEG) Urine Urobilinogen NEG (NEG) Urine Leukocyte Esterase NEG (NEG) Urine WBC (Auto) 1-5 /hpf (0-5) Urine RBC (Auto) 5-10 /hpf (0-4) Urine Hyaline Casts (Auto) 1-5 /lpf (0-5) Urine Epithelial Cells (Auto) >30 /lpf (0-5) Urine Bacteria (Auto) NEG (NEG) Anion Gap 8.0 mmol/L (3-11) Est Creatinine Clear Calc Drug Dose 83.3 ml/min Estimated GFR () 95.9 Estimated GFR (Non- 82.8 BUN/Creatinine Ratio 4.9 (10-20) Calcium Level 8.4 mg/dl (8.5-10.1) Total Bilirubin 0.4 mg/dl (0.2-1) Direct Bilirubin 0.1 mg/dl (0-0.2) Aspartate Amino Transf (AST/SGOT) 71 U/L (15-37) Alanine Aminotransferase (ALT/SGPT) 38 U/L (12-78) Alkaline Phosphatase 123 U/L (45-117) Total Protein 7.2 gm/dl (6.4-8.2) Albumin 3.8 gm/dl (3.4-5.0) Lipase 101 U/L (73-393) Bedside Troponin I < 0.030 ng/ml (0-0.045) Laboratory studies as stated above per my review. Medications Administered Medications (Trade) Dose Ordered Sig/Randi Route Start Time Stop Time Status Last Admin Dose Admin Ketorolac Tromethamine (Toradol Inj) 30 mg NOW STAT IV 04/24/17 18:42 04/24/17 18:44 DC 04/24/17 18:42 30 MG Morphine Sulfate (MoRPHine SULFATE INJ) 4 mg NOW STAT IV 04/24/17 19:26 04/24/17 19:27 DC 04/24/17 19:58 4 MG Ondansetron HCl (Zofran Inj) 4 mg NOW STAT IV 04/24/17 19:26 04/24/17 19:27 DC 04/24/17 19:57 4 MG ECG Indication: abdominal pain Rate (beats per minute): 72 Rhythm: normal sinus Findings: no acute ischemic change, no ectopy Change: No acute changes when compared to 01/21/2017. ED Course 1838: Past medical records reviewed. The patient was evaluated in room A9, and a complete history and physical examination were performed. 1841: Ordered Toradol 30 mg IV 1725: I reassessed the patient at this time. She is still in pain. 1925: Ordered Zofran 4 mg IV and Morphine Sulfate 4 mg IV. 1819: I reassessed the patient at this time. She is feeling better and resting comfortably. 2048: I reassessed the patient at this time. She is feeling better and resting comfortably. I discussed the results and treatment plan with the patient. I answered all pertaining questions that she had. She expressed understanding and verbalized agreement. The patient will be discharged home. Medical Decision Differentials include, but are not limited to; gallbladder disease, PE, PNA, musculoskeletal injury, cardiac disease, and electrolyte or metabolic abnormality. This patient comes in as described above. She was placed in room A9. She is having pain in her right upper abdomen/lower chest. It is worse with breathing and also palpation in the right upper quadrant. There is no rash to suggest shingles. IV access established and blood work was obtained. Her EKG does not suggest acute coronary syndrome or arrhythmia and her symptoms would be very atypical for this as well. She was given Toradol IV and a chest x-ray, gallbladder ultrasound, and multiple blood testing was obtained. She was reassessed frequently. She has no significant elevation of her white count or fever to suggest infection. She's no acute electrode or metabolic abnormalities. She is nothing to suggest liver disease. Her troponin was normal and her symptoms are atypical for cardiac disease. D-dimer is within normal limits and an a low pretest probability this makes PE highly unlikely. I reviewed her record she's had abdominal chest pain multiple times in the ER and sent multiple CAT scans she's no lower abdominal tenderness and her ultrasound today is negative. I do not feel it needed to repeat another CAT scan and I do not want to expose her to further radiation. I do not think this is appendicitis or a surgical process likely , however if she has increasing pain, fever chills, worsening symptoms or new problems or concerns she should return to the ER. She can follow up with her regular doctor and use over-the- counter ibuprofen and/or Tylenol and return to the ER if any new problems or concerns. Medication Reconcilliation Current Medication List: was personally reviewed by me Blood Pressure Screening Patient's blood pressure: Normal blood pressure Impression Primary Impression: RUQ abdominal pain Scribe Attestation The scribe's documentation has been prepared under my direction and personally reviewed by me in its entirety. I confirm that the note above accurately reflects all work, treatment, procedures, and medical decision making performed by me. Departure Information Dispostion Home / Self-Care Referrals No Doctor, Assigned (PCP) Forms HOME CARE DOCUMENTATION FORM, IMPORTANT VISIT INFORMATION, WORK / SCHOOL INSTRUCTIONS Patient Instructions [facility] Additional Instructions Rest. Drink plenty of fluids. Return if: Worsening of symptoms, shortness of breath, increasing pain, any new problems or concerns For pain, may use [id number] Tylenol/acetaminophen and/or ibuprofen but do not exceed the [id number] recommended dosages and do not take with food. Do not take with any other medications that contain acetaminophen/ Tylenol. Follow-up with your doctor in 1-2 days for recheck
[2017-04-24 19:12] LABS: BASO % 0.8 %; BASO ABS # 0.06 K/uL (0-0.2); EOS % 3.3 %; EOS ABS # 0.25 K/uL (0-0.5); HEMATOCRIT 34.8 % (37-47); HEMOGLOBIN 12.1 g/dL (12.0-16.0); IG# 0.02 K/uL (0.00-0.02); LYMPH % 30.3 %; LYMPH ABS # 2.32 K/uL (1.2-3.4); MEAN CELL VOLUME 98.3 fL (80-100); MEAN CORPUSCULAR HEMOGLOBIN 34.2 pg (25-34); MEAN CORPUSCULAR HGB CONC 34.8 g/dl (32-36); MEAN PLATELET VOLUME 9.9 fL (7.4-10.4); MONO % 9.9 %; MONO ABS # 0.76 K/uL (0.11-0.59); NEUT % 55.4 %; NEUT ABS # 4.25 K/uL (1.4-6.5); PLATELET COUNT 232 K/uL (130-400); RED CELL DISTRIBUTION WIDTH CV 13.4 % (11.5-14.5); RED CELL DISTRIBUTION WIDTH SD 47.9 fL (36.4-46.3); WHITE BLOOD COUNT 7.66 K/uL (4.8-10.8)
--- NOTE | 2017-04-24 19:25 | DIAGNOSTIC IMAGING REPORT ---
CHEST ONE VIEW PORTABLE HISTORY: 46 years-old Female CHEST PAIN acute atypical chest pain COMPARISON: Chest radiograph 01/21/2017 TECHNIQUE: Portable upright AP view of the chest FINDINGS: Cardiac mediastinal and hilar silhouettes are within normal limits. No pneumothorax, pleural effusion, focal airspace consolidation or overt pulmonary edema. 8 mm linear calcification adjacent to the greater tuberosity right humerus suggests rotator cuff calcific tendinosis. Degenerative changes are noted within the spine. IMPRESSION: No acute cardiopulmonary process. The above report was generated using voice recognition software. It may contain grammatical, syntax or spelling errors. Electronically signed by: Alton Ureña M.D. 04/24/2017 7:24 PM Dictated Date/Time: 04/24/2017 7:23 PM
[2017-04-24] MEDS ORDERED: ONDANSETRON INJ 2 MG/ML 2 ML VIAL IV STA (19:26)
[2017-04-24] MEDS ORDERED: MoRPHine SULFATE 4 MG/ML 1 ML CARP\\VIAL IV STA (19:26)
[2017-04-24 19:33] LABS: ALBUMIN 3.8 gm/dl (3.4-5.0); CALCIUM 8.4 mg/dl (8.5-10.1); CREATININE 0.85 mg/dl (0.60-1.20); POTASSIUM 3.4 mmol/L (3.5-5.1)
[2017-04-24 19:36] LABS: TOTAL PROTEIN 7.2 gm/dl (6.4-8.2)
--- NOTE | 2017-04-24 20:01 | DIAGNOSTIC IMAGING REPORT ---
GALLBLADDER-ABD LIMITED HISTORY: 46 years-old Female eval for GB disease acute right upper quadrant abdominal pain COMPARISON: Right upper quadrant ultrasound 10/21/2015, CT 07/19/2015 TECHNIQUE: Multiple real-time sonographic images of the abdominal right upper quadrant were obtained assessing grayscale appearance and color flow FINDINGS: Imaged pancreas is unremarkable. The liver is mildly echogenic and heterogeneous with poor through transmission suggesting possible fatty infiltration measuring up to 19 cm in length. No intrahepatic biliary ductal dilation. Gallbladder is unremarkable without shadowing cholelithiasis, wall thickening or pericholecystic fluid collections. Sonographic Gregorio sign reported as negative. The common bile duct is normal, 6 mm. Imaged right kidney is within normal limits measuring 10.6 cm without hydronephrosis. IMPRESSION: 1. Unremarkable sonographic appearance of the gallbladder without evidence of cholelithiasis or acute cholecystitis. 2. No biliary ductal dilation. 3. Probable fatty infiltration of the liver. The above report was generated using voice recognition software. It may contain grammatical, syntax or spelling errors. Electronically signed by: Alton Ureña M.D. 04/24/2017 8:00 PM Dictated Date/Time: 04/24/2017 7:57 PM
[2017-04-24 21:07] VITALS: BP 116/76; PULSE 76; O2SAT 98
[2018-01-03] MEDS ORDERED: RANI150T2 PO (16:47)
[2018-01-03] MEDS ORDERED: OMEP20CA9 PO (16:47)
[2018-01-03] MEDS ORDERED: LXP/20 PO (20:04)
== END 2017-04-24 21:08 | disposition home or self-care (01) ==
LOC: C.EDB 18:11 → C.EDA 21:08
DX: R10.11 Right upper quadrant pain (principal); F41.9 Anxiety disorder, unspecified; F32.9 Major depressive disorder, single episode, unspecified; F31.9 Bipolar disorder, unspecified; F17.210 Nicotine dependence, cigarettes, uncomplicated; Z79.899 Other long term (current) drug therapy

== ENCOUNTER 2018-01-03 22:01 | Emergency (ER) | payer OTHER ==
[~2018-01-03] VITALS: Ht 160 cm; Wt 75.0 kg
[~2018-01-03 22:01] MED LIST changes: -BUPR150T5 PO; +LXP/20 PO; +OMEP20CA9 PO; +RANI150T2 PO; -VNTHFA/IN INH
[2018-01-03 22:03] VITALS: TEMP 36.8; Ht 160 cm; Wt 75.0 kg
[2018-01-03] MEDS ORDERED: NAPR1TAB9 PO (22:36)
[2018-01-03] MEDS ORDERED: SODIUM CHLORIDE 0.9% 1000ML 1,000 ML IV STA (22:47)
--- NOTE | 2018-01-03 23:00 | EMERGENCY ROOM VISIT NOTE ---
History Report prepared by Zaira: Eleanor Lynch Under the Supervision of: Dr. Cliff Wesley M.D. First contact with patient: 22:32 Chief Complaint: ABDOMINAL PAIN Stated Complaint: HEADAHCE, PAIN IN STOMACH AND BACK,MUSCLES TIGHT Nursing Triage Summary: Patient reports headache, right sided abdominal pain, nausea, and diarrhea for the past couple days. History of Present Illness The patient is a 47 year old female who presents to the Emergency Room with complaints of worsening abdominal pain that started at work this evening. The patient notes she has experienced increased diaphoresis and multiple tick bites over the past month. She states that she would like a Lyme's disease test. Source of History: patient Onset: this evening Position: abdomen Quality: other (pain) Timing: worsening Associated Symptoms: + diaphoresis Note: Additional symptoms: multiple tick bites Review of Systems See HPI for pertinent positives & negatives. A total of 10 systems reviewed and were otherwise negative. Past Medical & Surgical Medical Problems: (1) Alcohol intoxication (2) Anxiety (3) Bipolar disorder (4) Chest pain (5) Depression (6) Epigastric abdominal pain (7) Fall (8) Gastro-Esophageal Reflux Disease Without Esophagitis (9) Hiatal hernia (10) Hypokalemia (11) Lumbar contusion (12) Migraine (13) Nausea, vomiting and diarrhea (14) Precordial chest pain (15) Right flank pain (16) RUQ abdominal pain (17) Urinary problem Surgical Problems: (1) H/O colonoscopy (2) H/O esophagogastroduodenoscopy (3) H/O exploratory laparotomy (4) H/O tubal ligation (5) H/O: hysterectomy (6) Hysterectomy Family History FHx: diabetes FHx: hypertension Gallbladder disease Social History Smoking Status: Current Every Day Smoker Alcohol Use: occasionally Drug Use: none Marital Status: Housing Status: lives with family Occupation Status: employed Current/Historical Medications Scheduled Escitalopram Oxalate (Escitalopram Oxalate), 20 MG PO HS Omeprazole (Prilosec), 20 MG PO BID Ranitidine HCl (Ranitidine HCl), 150 MG PO BID Triamcinolone Acet (Triamcinolone Acetonide), 1 APPLN TOP PRN Scheduled PRN Naproxen (Aleve), 440 MG PO UD PRN for Pain Allergies Coded Allergies: Ciprofloxacin (Verified Adverse Reaction, Mild, GI SYMPTOMS, 01/10/17) Physical Exam Vital Signs Date Time Temp Pulse Resp B/P (MAP) Pulse Ox O2 Delivery O2 Flow Rate FiO2 01/04/18 00:50 77 18 107/71 95 Room Air 01/03/18 23:50 63 18 110/73 98 Room Air 01/03/18 23:06 73 01/03/18 22:03 36.8 90 18 134/87 97 Room Air Physical Exam GENERAL: Awake, alert, well-appearing, in no acute distress HENT: Normocephalic, atraumatic. Oropharynx unremarkable. EYES: Normal conjunctiva. Sclera non-icteric. NECK: Supple. No nuchal rigidity. FROM. No JVD. RESPIRATORY: Clear to auscultation. CARDIAC: Regular rate, normal rhythm. Extremities warm and well perfused. Pulses equal. ABDOMEN: Soft, non-distended. Tender in right upper quadrant. No rebound or guarding. No masses. RECTAL: Deferred. MUSCULOSKELETAL: Chest examination reveals no tenderness. The back is symmetrical on inspection without obvious abnormality. There is no CVA tenderness to palpation. No joint edema. LOWER EXTREMITIES: Calves are equal size bilaterally and non-tender. No edema. No discoloration. NEURO: Normal sensorium. No sensory or motor deficits noted. SKIN: No rash or jaundice noted. Medical Decision & Procedures ER Provider Diagnostic Interpretation: Radiology results as stated below per my review and radiologist interpretation: ABDOMEN 2VIEW W/PA CHEST RTN CLINICAL HISTORY: Right upper quadrant abdominal pain COMPARISON STUDY: Chest x-ray dated 04/24/2017 FINDINGS: The erect chest reveals no evidence of free air. There is no evidence of focal pulmonary consolidation.] Erect and supine views of the abdomen reveal no abnormally dilated loops of large or small bowel. There are no transition zone to indicate bowel obstruction. IMPRESSION: No evidence of bowel obstruction. No evidence of free air. Electronically signed by: Enrike Lepe M.D. 01/04/2018 6:43 AM Dictated Date/Time: 01/04/2018 6:42 AM BILIARY ULTRASOUND CLINICAL HISTORY: Right upper quadrant abdominal pain COMPARISON STUDY: 04/24/2017 FINDINGS: The pancreas appears sonographically normal. The liver appears sonographically normal. The gallbladder appears sonographically normal. There is no ductal dilatation. The common bile duct measures 6 mm. There is no right-sided hydronephrosis. IMPRESSION: Normal biliary ultrasound. Electronically signed by: Enrike Lepe M.D. 01/04/2018 6:35 AM Dictated Date/Time: 01/04/2018 6:34 AM Laboratory Results 01/03/18 22:57 Red Blood Count 4.22, Mean Corpuscular Volume 94.5, Mean Corpuscular Hemoglobin 32.2, Mean Corpuscular Hemoglobin Concent 34.1, Mean Platelet Volume 10.1, Neutrophils (%) (Auto) 44.7, Lymphocytes (%) (Auto) 39.9, Monocytes (%) (Auto) 10.6, Eosinophils (%) (Auto) 3.4, Basophils (%) (Auto) 1.2, Neutrophils # (Auto ) 2.88, Lymphocytes # (Auto) 2.57, Monocytes # (Auto) 0.68, Eosinophils # (Auto ) 0.22, Basophils # (Auto) 0.08 01/03/18 22:57 Test 01/03/18 22:57 01/03/18 23:18 White Blood Count 6.44 K/uL (4.8-10.8) Red Blood Count 4.22 M/uL (4.2-5.4) Hemoglobin 13.6 g/dL (12.0-16.0) Hematocrit 39.9 % (37-47) Mean Corpuscular Volume 94.5 fL (80-100) Mean Corpuscular Hemoglobin 32.2 pg (25-34) Mean Corpuscular Hemoglobin Concent 34.1 g/dl (32-36) Platelet Count 291 K/uL (130-400) Mean Platelet Volume 10.1 fL (7.4-10.4) Neutrophils (%) (Auto) 44.7 % Lymphocytes (%) (Auto) 39.9 % Monocytes (%) (Auto) 10.6 % Eosinophils (%) (Auto) 3.4 % Basophils (%) (Auto) 1.2 % Neutrophils # (Auto) 2.88 K/uL (1.4-6.5) Lymphocytes # (Auto) 2.57 K/uL (1.2-3.4) Monocytes # (Auto) 0.68 K/uL (0.11-0.59) Eosinophils # (Auto) 0.22 K/uL (0-0.5) Basophils # (Auto) 0.08 K/uL (0-0.2) RDW Standard Deviation 44.8 fL (36.4-46.3) RDW Coefficient of Variation 12.9 % (11.5-14.5) Immature Granulocyte % (Auto) 0.2 % Immature Granulocyte # (Auto) 0.01 K/uL (0.00-0.02) Urine Color YELLOW Urine Appearance CLEAR (CLEAR) Urine pH 5.0 (4.5-7.5) Urine Specific Spencer 1.007 (1.000-1.030) Urine Protein NEG (NEG) Urine Glucose (UA) NEG (NEG) Urine Ketones NEG (NEG) Urine Occult Blood TRACE (NEG) Urine Nitrite NEG (NEG) Urine Bilirubin NEG (NEG) Urine Urobilinogen NEG (NEG) Urine Leukocyte Esterase NEG (NEG) Urine WBC (Auto) 0 /hpf (0-5) Urine RBC (Auto) 0-4 /hpf (0-4) Urine Hyaline Casts (Auto) 1-5 /lpf (0-5) Urine Epithelial Cells (Auto) 5-10 /lpf (0-5) Urine Bacteria (Auto) NEG (NEG) Est Creatinine Clear Calc Drug Dose 87.4 ml/min Estimated GFR () 105.7 Estimated GFR (Non- 91.2 BUN/Creatinine Ratio 11.6 (10-20) Calcium Level 8.7 mg/dl (8.5-10.1) Total Bilirubin 0.3 mg/dl (0.2-1) Direct Bilirubin 0.1 mg/dl (0-0.2) Aspartate Amino Transf (AST/SGOT) 30 U/L (15-37) Alanine Aminotransferase (ALT/SGPT) 32 U/L (12-78) Alkaline Phosphatase 99 U/L (45-117) Total Protein 8.0 gm/dl (6.4-8.2) Albumin 4.2 gm/dl (3.4-5.0) Lipase 155 U/L (73-393) Lyme Disease IgG Antibody NEG (NEG) Lyme Disease IgM Antibody NEG (NEG) Bedside Hemoglobin 13.6 g/dl (12.0-16.0) Bedside Hematocrit 40 % (37-47) Bedside Sodium 141 mEq/L (135-144) Bedside Potassium 3.9 mEq/L (3.3-5.0) Bedside Chloride 102 mEq/L (101-112) Bedside Total CO2 29 mEq/l (24-31) Anion Gap 15.0 mmol/L (16-25) Bedside Blood Urea Nitrogen 8 mg/dl (7-18) Bedside Creatinine 0.8 mg/dl (0.6-1.3) Bedside Glucose (other) 89 mg/dl (70-99) Bedside Ionized Calcium (Libby) 1.18 mmol/l (1.12-1.32) Labs reviewed by ED physician. Medications Administered Medications (Trade) Dose Ordered Sig/Randi Route Start Time Stop Time Status Last Admin Dose Admin Sodium Chloride 1,000 ml @ 999 mls/hr Q1H1M STAT IV 01/03/18 22:47 01/03/18 23:47 DC 01/03/18 23:00 999 MLS/HR Ketorolac Tromethamine (Toradol Inj) 30 mg NOW STAT IV 01/03/18 23:25 01/03/18 23:26 DC 01/03/18 23:55 30 MG Ondansetron HCl (Zofran Inj) 4 mg NOW STAT IV 01/03/18 23:25 01/03/18 23:26 DC 01/03/18 23:55 4 MG ED Course 2245: Past medical records reviewed. The patient was evaluated in room A3. A complete history and physical examination was performed. 0055: Upon reexamination the patient is resting. I discussed results and treatment plan with the patient. She verbalizes agreement and understanding. The patient is ready for discharge. Medical Decision Etiologies such as appendicitis, diverticulitis, PUD, biliary pathology, UTI, pancreatitis, obstruction, mesenteric ischemia, aortic pathology, infections, inflammatory bowel disease, renal colic, as well as others were entertained. This is a 47-year-old female who presents emergency department with multiple complaints. Patient was at work this evening when she began experiencing leg cramps. I will note that the patient presents the emergency department during a period of high volume and high acuity during single provider coverage. The patient has a normal CBC renal profile liver profile. Her electrolytes are normal. The patient was tender in the right upper quadrant so she was sent for a ultrasound of her gallbladder. The patient is also concerned about 3 insect bites and is requesting a Lyme Ehrlichia and anaplasmosis test be performed. Her Lyme here is negative. I do feel that the patient is safe enough to be discharged home. Patient was in agreement with treatment plan. Medication Reconcilliation Current Medication List: was personally reviewed by me Blood Pressure Screening Patient's blood pressure: Normal blood pressure Impression Primary Impression: Leg cramp Scribe Attestation The scribe's documentation has been prepared under my direction and personally reviewed by me in its entirety. I confirm that the note above accurately reflects all work, treatment, procedures, and medical decision making performed by me. Departure Information Dispostion Home / Self-Care Referrals Lovely Bass, (PCP) Forms Call Back Authorization, HOME CARE DOCUMENTATION FORM, IMPORTANT VISIT INFORMATION Patient Instructions [facility] Additional Instructions Increase fluids next 48 hours Take 600 mg Ibuprofen every 6 hours Radiographs and U/Ss will be reread by a radiologist in the morning. Culture results are usually available in approx 48 hours You have been examined and treated today on an emergency basis only. This is not a substitute for, or an effort to provide, complete comprehensive medical care. It is impossible to recognize and treat all injuries or illnesses in a single emergency department visit. It is therefore important that you follow up closely with Dr Bass. Call as soon as possible for an appointment. Thank you for your time and consideration. I look forward to speaking with you again soon. Please don't hesitate to call us if you have any questions.
[2018-01-03] MEDS ORDERED: TRIA0.5C4 TOP (23:06)
[2018-01-03] MEDS ORDERED: KETOROLAC TROMETHAMINE 30 MG/ML VIAL IV STA (23:25)
[2018-01-03] MEDS ORDERED: ONDANSETRON INJ 2 MG/ML 2 ML VIAL IV STA (23:25)
[2018-01-03 23:27] LABS: ISTAT CREATININE 0.8 mg/dl (0.6-1.3); ISTAT IONIZED CALCIUM 1.18 mmol/l (1.12-1.32); ISTAT POTASSIUM 3.9 mEq/L (3.3-5.0)
[2018-01-03 23:49] LABS: ALBUMIN 4.2 gm/dl (3.4-5.0); CALCIUM 8.7 mg/dl (8.5-10.1); CREATININE 0.78 mg/dl (0.60-1.20); POTASSIUM 3.9 mmol/L (3.5-5.1)
[2018-01-04 00:22] LABS: BASO % 1.2 %; BASO ABS # 0.08 K/uL (0-0.2); EOS % 3.4 %; EOS ABS # 0.22 K/uL (0-0.5); HEMATOCRIT 39.9 % (37-47); HEMOGLOBIN 13.6 g/dL (12.0-16.0); IG# 0.01 K/uL (0.00-0.02); LYMPH % 39.9 %; LYMPH ABS # 2.57 K/uL (1.2-3.4); MEAN CELL VOLUME 94.5 fL (80-100); MEAN CORPUSCULAR HEMOGLOBIN 32.2 pg (25-34); MEAN CORPUSCULAR HGB CONC 34.1 g/dl (32-36); MEAN PLATELET VOLUME 10.1 fL (7.4-10.4); MONO % 10.6 %; MONO ABS # 0.68 K/uL (0.11-0.59); NEUT % 44.7 %; NEUT ABS # 2.88 K/uL (1.4-6.5); PLATELET COUNT 291 K/uL (130-400); RED CELL DISTRIBUTION WIDTH CV 12.9 % (11.5-14.5); RED CELL DISTRIBUTION WIDTH SD 44.8 fL (36.4-46.3); WHITE BLOOD COUNT 6.44 K/uL (4.8-10.8)
[2018-01-04 00:50] VITALS: BP 107/71; PULSE 77; O2SAT 95
--- NOTE | 2018-01-04 06:36 | DIAGNOSTIC IMAGING REPORT ---
BILIARY ULTRASOUND CLINICAL HISTORY: Right upper quadrant abdominal pain COMPARISON STUDY: 04/24/2017 FINDINGS: The pancreas appears sonographically normal. The liver appears sonographically normal. The gallbladder appears sonographically normal. There is no ductal dilatation. The common bile duct measures 6 mm. There is no right-sided hydronephrosis. IMPRESSION: Normal biliary ultrasound. Electronically signed by: Enrike Lepe M.D. 01/04/2018 6:35 AM Dictated Date/Time: 01/04/2018 6:34 AM
--- NOTE | 2018-01-04 06:44 | DIAGNOSTIC IMAGING REPORT ---
ABDOMEN 2VIEW W/PA CHEST RTN CLINICAL HISTORY: Right upper quadrant abdominal pain COMPARISON STUDY: Chest x-ray dated 04/24/2017 FINDINGS: The erect chest reveals no evidence of free air. There is no evidence of focal pulmonary consolidation.] Erect and supine views of the abdomen reveal no abnormally dilated loops of large or small bowel. There are no transition zone to indicate bowel obstruction. IMPRESSION: No evidence of bowel obstruction. No evidence of free air. Electronically signed by: Enrike Lepe M.D. 01/04/2018 6:43 AM Dictated Date/Time: 01/04/2018 6:42 AM
== END 2018-01-04 00:55 | disposition home or self-care (01) ==
LOC: C.EDB 22:02 → C.EDA 01-04 00:55
DX: R25.2 Cramp and spasm (principal); F41.9 Anxiety disorder, unspecified; F31.9 Bipolar disorder, unspecified; K21.9 Gastro-esophageal reflux disease without esophagitis; E03.9 Hypothyroidism, unspecified; Z90.710 Acquired absence of both cervix and uterus; Z98.51 Tubal ligation status; Z83.3 Family history of diabetes mellitus; Z82.49 Family history of ischemic heart disease and other diseases of the circulatory system; Z83.79 Family history of other diseases of the digestive system; F17.210 Nicotine dependence, cigarettes, uncomplicated; Z88.1 Allergy status to other antibiotic agents